=== PATIENT | male | born 1955 | race Caucasian/White ===

== ENCOUNTER 2022-11-14 12:22 | Emergency (ER) | payer OTHER ==
--- OUTSIDE RECORDS SUMMARY | 2022-11-14 12:26 | XMS REPORT | Continuity of Care Document ---
:1955 Author Organization [facility] t Address [address] [place] [address] Care Team Providers Name Role Phone Tl Sloan Attending Clinician Unavailable Payers Payer Name Policy Type Policy Number Effective Date Expiration Date S herminia [employer] MEDICARE C1 [id number] Common Spi rit PPO - [facility] Problems Condition Condition Condition Status Onset Resolution Last Treating Co mments Source Name Details Category Date Date Treatment Clinician Date [id number] KATINA Problem Active Common (obstructi Spirit ve sleep - [facility]I apnea) [facility] [id number] Gout, Problem Active Common unspecifie Spirit d cause, - [facility]I unspecifie [facility] chronicity Medica l , Center unspecifie d site [id number] CPAP Problem Active Common (continuou Spirit s positive - CHI airway St pressure) [facility] dependence [facility]ica [facility] [place] [id number] Noncomplia Problem Active Co mmon nce with Spirit dietary - [facility]I restrictio [facility] [id number] Mixed Problem Active Common hyperlipid Spirit emia - CHI [facility] [id number] HTN, goal Problem Active Comm on below Spirit 140/90 - [facility] [id number] Mild Problem Active Common intermitte Spirit nt asthma - [facility] with [facility] rhinitis Medical without Center complicati on [id number] Adult BMI Problem Active Com mon 35.0-35.9 Spirit kg/sq m [facility] Allergies, Adverse Reactions, Alerts This patient has no known allergies or adverse reactions. Social History Social Habit Start Date Stop Date Quantity Comments Source History of Tobacco Use Co mmon [facility] Sex Assigned At Com mon [facility] Smoking Status Start Date Stop Date Source Never Smoker [facility] Medications Ordered Filled Start Stop Current Ordering Indication Dosage Frequency Signature Comments Components Source Medication Medication Date Date Medication? Clinician (SIG) Name Name Nebulizer Nebulizer 2020-0 Yes Tl as C ommon 5-11 Sloan directed Spirit 00:00: for asthma, cough, [facility] wheeze [facility] Ipratropium Ipratropium 2020-0 Yes Tl 3 ml as Common -Albuterol -Albuterol 3-16 Sloan needed Spirit 00:00: [facility] Ipratropium Ipratropium 2020-0 No 3{ml_as Ipratropiu -Albuterol -Albuterol 3-16 _needed m-Albutero 0.5-2.5 (3) 0.5-2.5 (3) 00:00: } l 0.5-2.5 MG/3ML MG/3ML 00 (3) MG/3ML Ipratropium Ipratropium 2020-0 No 3{ml_as Ipratropiu -Albuterol -Albuterol 3-16 _needed m-Albutero 0.5-2.5 (3) 0.5-2.5 (3) 00:00: } l 0.5-2.5 MG/3ML MG/3ML 00 (3) MG/3ML Ipratropium Ipratropium 2020-0 No 3{ml_as Ipratropiu -Albuterol -Albuterol 3-16 _needed m-Albutero 0.5-2.5 (3) 0.5-2.5 (3) 00:00: } l 0.5-2.5 MG/3ML MG/3ML 00 (3) MG/3ML Ipratropium Ipratropium 2020-0 No 3{ml_as Ipratropiu -Albuterol -Albuterol 3-16 _needed m-Albutero 0.5-2.5 (3) 0.5-2.5 (3) 00:00: } l 0.5-2.5 MG/3ML MG/3ML 00 (3) MG/3ML Ipratropium Ipratropium 2020-0 No 3{ml_as Ipratropiu -Albuterol -Albuterol 3-16 _needed m-Albutero 0.5-2.5 (3) 0.5-2.5 (3) 00:00: } l 0.5-2.5 MG/3ML MG/3ML 00 (3) MG/3ML Ipratropium Ipratropium 2020-0 No 3{ml_as Ipratropiu -Albuterol -Albuterol 3-16 _needed m-Albutero 0.5-2.5 (3) 0.5-2.5 (3) 00:00: } l 0.5-2.5 MG/3ML MG/3ML 00 (3) MG/3ML Ipratropium Ipratropium 2020-0 No 3{ml_as Ipratropiu -Albuterol -Albuterol 3-16 _needed m-Albutero 0.5-2.5 (3) 0.5-2.5 (3) 00:00: } l 0.5-2.5 MG/3ML MG/3ML 00 (3) MG/3ML Ipratropium Ipratropium 2020-0 No 3{ml_as Ipratropiu -Albuterol -Albuterol 3-16 _needed m-Albutero 0.5-2.5 (3) 0.5-2.5 (3) 00:00: } l 0.5-2.5 MG/3ML MG/3ML 00 (3) MG/3ML Ipratropium Ipratropium 2020-0 No 3{ml_as Ipratropiu -Albuterol -Albuterol 3-16 _needed m-Albutero 0.5-2.5 (3) 0.5-2.5 (3) 00:00: } l 0.5-2.5 MG/3ML MG/3ML 00 (3) MG/3ML Simvastatin Simvastatin Yes Tl TAKE 1 Common Sloan TABLET Spirit EVERY - CHI EVENING [facility] Dulera Dulera Yes Tl 2 puffs Common Sloan Spirit - [facility] Allopurinol Allopurinol Yes Tl 2 tablet Common Sloan [facility] ProAir HFA ProAir HFA Yes Tl 2 puffs as Common Sloan needed [facility] Alyssa-D Alyssa-D Yes Tl not Com mon 24 Hour 24 Hour Sloan defined Spiri [facility] Simvastatin Simvastatin No Simvastati 20 MG 20 MG n 20 MG ProAir HFA ProAir HFA No 2{puffs QID ProAir HFA 108 (90 108 (90 _as_nee 108 (90 Base) Base) ded} Base) MCG/ACT MCG/ACT MCG/ACT Simvastatin Simvastatin No 1{table QD Simvastati 20 MG 20 MG t_in_th n 20 MG e_eveni ng} Allopurinol Allopurinol No Allopurino 100 MG 100 MG l 100 MG Alyssa-D Alyssa-D No Alyssa-D 24 Hour 24 Hour 24 Hour Nebulizer - Nebulizer - No Nebulizer - Allopurinol Allopurinol No 2{table QD Allopurino 100 MG 100 MG t} l 100 MG Dulera Dulera No Dulera 100-5 100-5 100-5 MCG/ACT MCG/ACT MCG/ACT Albuterol Albuterol No Albuterol Sulfate HFA Sulfate HFA Sulfate 108 (90 108 (90 HFA 108 Base) Base) (90 Base) MCG/ACT MCG/ACT MCG/ACT Dulera Dulera No 2{puffs BID Dulera 100-5 100-5 } 100-5 MCG/ACT MCG/ACT MCG/ACT Simvastatin Simvastatin No Simvastati 20 MG 20 MG n 20 MG ProAir HFA ProAir HFA No 2{puffs QID ProAir HFA 108 (90 108 (90 _as_nee 108 (90 Base) Base) ded} Base) MCG/ACT MCG/ACT MCG/ACT Simvastatin Simvastatin No 1{table QD Simvastati 20 MG 20 MG t_in_th n 20 MG e_eveni ng} Allopurinol Allopurinol No Allopurino 100 MG 100 MG l 100 MG Alyssa-D Alyssa-D No Alyssa-D 24 Hour 24 Hour 24 Hour Nebulizer - Nebulizer - No Nebulizer - Allopurinol Allopurinol No 2{table QD Allopurino 100 MG 100 MG t} l 100 MG Dulera Dulera No Dulera 100-5 100-5 100-5 MCG/ACT MCG/ACT MCG/ACT Albuterol Albuterol No Albuterol Sulfate HFA Sulfate HFA Sulfate 108 (90 108 (90 HFA 108 Base) Base) (90 Base) MCG/ACT MCG/ACT MCG/ACT Dulera Dulera No 2{puffs BID Dulera 100-5 100-5 } 100-5 MCG/ACT MCG/ACT MCG/ACT Simvastatin Simvastatin No Simvastati 20 MG 20 MG n 20 MG Dulera Dulera No 2{puffs BID Dulera 100-5 100-5 } 100-5 MCG/ACT MCG/ACT MCG/ACT ProAir HFA ProAir HFA No 2{puffs QID ProAir HFA 108 (90 108 (90 _as_nee 108 (90 Base) Base) ded} Base) MCG/ACT MCG/ACT MCG/ACT Allopurinol Allopurinol No 2{table QD Allopurino 100 MG 100 MG t} l 100 MG Allopurinol Allopurinol No QD Allopurino 100 MG 100 MG l 100 MG Nebulizer - Nebulizer - No Nebulizer - Simvastatin Simvastatin No 1{table QD Simvastati 20 MG 20 MG t_in_ n 20 MG e_eveni ng} Dulera Dulera No Dulera 100-5 100-5 100-5 MCG/ACT MCG/ACT MCG/ACT Albuterol Albuterol No Albuterol Sulfate HFA Sulfate HFA Sulfate 108 (90 108 (90 HFA 108 Base) Base) (90 Base) MCG/ACT MCG/ACT MCG/ACT Alyssa-D Alyssa-D No Alyssa-D 24 Hour 24 Hour 24 Hour Dulera Dulera No Dulera 100-5 100-5 100-5 MCG/ACT MCG/ACT MCG/ACT ProAir HFA ProAir HFA No 2{puffs QID ProAir HFA 108 (90 108 (90 _as_nee 108 (90 Base) Base) ded} Base) MCG/ACT MCG/ACT MCG/ACT Allopurinol Allopurinol No Allopurino 100 MG 100 MG l 100 MG Nebulizer - Nebulizer - No Nebulizer - Dulera Dulera No 2{puffs BID Dulera 100-5 100-5 } 100-5 MCG/ACT MCG/ACT MCG/ACT Albuterol Albuterol No Albuterol Sulfate HFA Sulfate HFA Sulfate 108 (90 108 (90 HFA 108 Base) Base) (90 Base) MCG/ACT MCG/ACT MCG/ACT Simvastatin Simvastatin No Simvastati 20 MG 20 MG n 20 MG Alyssa-D Alyssa-D No Alyssa-D 24 Hour 24 Hour 24 Hour Simvastatin Simvastatin No 1{table QD Simvastati 20 MG 20 MG t_in_th n 20 MG e_eveni ng} Allopurinol Allopurinol No Allopurino 100 MG 100 MG l 100 MG ProAir HFA ProAir HFA No 2{puffs QID ProAir HFA 108 (90 108 (90 _as_nee 108 (90 Base) Base) ded} Base) MCG/ACT MCG/ACT MCG/ACT Dulera Dulera No 2{puffs BID Dulera 100-5 100-5 } 100-5 MCG/ACT MCG/ACT MCG/ACT Allopurinol Allopurinol No 2{table QD Allopurino 100 MG 100 MG t} l 100 MG Nebulizer - Nebulizer - No Nebulizer - Simvastatin Simvastatin No Simvastati 20 MG 20 MG n 20 MG Alyssa-D Alyssa-D No Alyssa-D 24 Hour 24 Hour 24 Hour Simvastatin Simvastatin No 1{table QD Simvastati 20 MG 20 MG t_in_th n 20 MG e_eveni ng} Allopurinol Allopurinol No Allopurino 100 MG 100 MG l 100 MG ProAir HFA ProAir HFA No 2{puffs QID ProAir HFA 108 (90 108 (90 _as_nee 108 (90 Base) Base) ded} Base) MCG/ACT MCG/ACT MCG/ACT Dulera Dulera No 2{puffs BID Dulera 100-5 100-5 } 100-5 MCG/ACT MCG/ACT MCG/ACT Allopurinol Allopurinol No 2{table QD Allopurino 100 MG 100 MG t} l 100 MG Nebulizer - Nebulizer - No Nebulizer - Simvastatin Simvastatin No Simvastati 20 MG 20 MG n 20 MG Alyssa-D Alyssa-D No Alyssa-D 24 Hour 24 Hour 24 Hour Allopurinol Allopurinol No QD Allopurino 100 MG 100 MG l 100 MG Dulera Dulera No 2{puffs BID Dulera 100-5 100-5 } 100-5 MCG/ACT MCG/ACT MCG/ACT Alyssa-D Alyssa-D No Aylssa-D 24 Hour 24 Hour 24 Hour ProAir HFA ProAir HFA No 2{puffs QID ProAir HFA 108 (90 108 (90 _as_nee 108 (90 Base) Base) ded} Base) MCG/ACT MCG/ACT MCG/ACT Nebulizer - Nebulizer - No Nebulizer - Simvastatin Simvastatin No QD Simvastati 20 MG 20 MG n 20 MG Albuterol Albuterol No Albuterol Sulfate HFA Sulfate HFA Sulfate 108 (90 108 (90 HFA 108 Base) Base) (90 Base) MCG/ACT MCG/ACT MCG/ACT Simvastatin Simvastatin No Simvastati 20 MG 20 MG n 20 MG Dulera Dulera No Dulera 100-5 100-5 100-5 MCG/ACT MCG/ACT MCG/ACT Simvastatin Simvastatin No 1{table QD Simvastati 20 MG 20 MG t_in_th n 20 MG e_eveni ng} Nebulizer - Nebulizer - No Nebulizer - Alyssa-D Alyssa-D No Alyssa-D 24 Hour 24 Hour 24 Hour ProAir HFA ProAir HFA No 2{puffs QID ProAir HFA 108 (90 108 (90 _as_nee 108 (90 Base) Base) ded} Base) MCG/ACT MCG/ACT MCG/ACT Allopurinol Allopurinol No Allopurino 100 MG 100 MG l 100 MG Simvastatin Simvastatin No Simvastati 20 MG 20 MG n 20 MG ProAir HFA ProAir HFA No 2{puffs QID ProAir HFA 108 (90 108 (90 _as_nee 108 (90 Base) Base) ded} Base) MCG/ACT MCG/ACT MCG/ACT Simvastatin Simvastatin No 1{table QD Simvastati 20 MG 20 MG t_in_th n 20 MG e_eveni ng} Allopurinol Allopurinol No Allopurino 100 MG 100 MG l 100 MG Alyssa-D Alyssa-D No Alyssa-D 24 Hour 24 Hour 24 Hour Nebulizer - Nebulizer - No Nebulizer - Allopurinol Allopurinol No 2{table QD Allopurino 100 MG 100 MG t} l 100 MG Dulera Dulera No Dulera 100-5 100-5 100-5 MCG/ACT MCG/ACT MCG/ACT Albuterol Albuterol No Albuterol Sulfate HFA Sulfate HFA Sulfate 108 (90 108 (90 HFA 108 Base) Base) (90 Base) MCG/ACT MCG/ACT MCG/ACT Dulera Dulera No 2{puffs BID Dulera 100-5 100-5 } 100-5 MCG/ACT MCG/ACT MCG/ACT Allopurinol Allopurinol No 2{table QD Allopurino 100 MG 100 MG 12- t} l 100 MG 00:00 :00 Dulera Dulera No 2{puffs BID Dulera 100-5 100-5 11-30 } 100-5 MCG/ACT MCG/ACT 00:00 MCG/ACT :00 Immunizations Ordered Immunization Filled Immunization Date Status Commen ts Source Name Name Prevnar 13 (PCV13) Prevnar 13 (PCV13) 2021-11-13 Completed [facility] 15:41:00 - [facility] Prevnar 13 (PCV13) Prevnar 13 (PCV13) 2021-11-13 Completed [facility] 15:41:00 [facility] Prevnar 13 (PCV13) Prevnar 13 (PCV13) 2021-11-13 Completed [facility] 15:41:00 [facility] Prevnar 13 (PCV13) Prevnar 13 (PCV13) 2021-11-13 Completed [facility] 15:41:00 - [facility] Prevnar 13 (PCV13) Prevnar 13 (PCV13) 2021-11-13 Completed [facility] 15:41:00 [facility] Prevnar 13 (PCV13) Prevnar 13 (PCV13) 2021-11-13 Completed [facility] 15:41:00 [facility] Prevnar 13 (PCV13) Prevnar 13 (PCV13) 2021-11-13 Completed [facility] 15:41:00 [facility] Prevnar 13 (PCV13) Prevnar 13 (PCV13) 2021-11-13 Completed [facility] 15:41:00 - [facility] Afluria single dose Afluria single dose 2020-05-11 Completed [facility] 10:16:00 - [facility] Afluria single dose Afluria single dose 2020-05-11 Completed Common [facility] 10:16:00 - [facility] Afluria single dose Afluria single dose 2020-05-11 Completed [facility] 10:16:00 - [facility] Afluria single dose Afluria single dose 2020-05-11 Completed [facility] 10:16:00 - [facility] Afluria single dose Afluria single dose 2020-05-11 Completed Common [facility] 10:16:00 - [facility] Afluria single dose Afluria single dose 2020-05-11 Completed Common [facility] 10:16:00 - [facility] Afluria single dose Afluria single dose 2020-05-11 Completed Common [facility] 10:16:00 - [facility] Afluria single dose Afluria single dose 2020-05-11 Completed [facility] 10:16:00 - [facility] Afluria single dose Afluria single dose 2020-05-11 Completed Common [facility] 10:16:00 - [facility] Vital Signs Vital Name Observation Time Observation Value Comments Source height 2022-05-22 14:10:00 67 [in_i] [facility] weight 2022-05-22 14:10:00 243 [lb_av] [facility] temperature 2022-05-22 14:10:00 96.9 [degF] [facility] bmi 2022-05-22 14:10:00 38.06 kg/m2 [facility] oximetry 2022-05-22 14:10:00 96 % [facility] respiratory rate 2022-05-22 14:10:00 16 /min Comm on [facility] blood pressure 2022-05-22 14:10:00 134 mm[Hg] Common [facility] - systolic [facility] blood pressure 2022-05-22 14:10:00 76 mm[Hg] [facility] - diastolic [facility] height 2021-11-30 11:30:00 69 [in_i] [facility] weight 2021-11-30 11:30:00 249.6 [lb_av] Common [facility] temperature 2021-11-30 11:30:00 98.8 [degF] Common [facility] bmi 2021-11-30 11:30:00 36.86 kg/m2 Common [facility] oximetry 2021-11-30 11:30:00 95 % Common [facility] respiratory rate 2021-11-30 11:30:00 16 /min Comm on [facility] blood pressure 2021-11-30 11:30:00 132 mm[Hg] Common [facility] - systolic [facility] blood pressure 2021-11-30 11:30:00 66 mm[Hg] [facility] - diastolic [facility] height 2021-11-13 15:00:00 69 [in_i] [facility] weight 2021-11-13 15:00:00 249.3 [lb_av] [facility] temperature 2021-11-13 15:00:00 98.0 [degF] Common [facility] bmi 2021-11-13 15:00:00 36.81 kg/m2 [facility] oximetry 2021-11-13 15:00:00 95 % [facility] respiratory rate 2021-11-13 15:00:00 16 /min Comm on [facility] blood pressure 2021-11-13 15:00:00 134 mm[Hg] Common [facility] systolic [facility] blood pressure 2021-11-13 15:00:00 67 mm[Hg] Common [facility] diastolic [facility] Procedures This patient has no known procedures. Encounters Start End Encounter Admission Attending Care Care Encounter Source Date/Time Date/Time Type Type Clinicians Facility Department ID 2021-11-13 Outpatient Sloan, ABAD STLC [id number] Common 14:56:00 [facility] 2021-11-09 Outpatient Sloan, STLMLC STLMLC [id number] Common 15:38:00 Tl [facility] 2021-10-31 Outpatient Sloan, STLMLC STLMLC [id number] Common 13:31:59 Tl [id number] [facility] 2021-10-31 Outpatient Sloan, STLMLC STLMLC [id number] Common 12:49:31 Tl [id number] [facility] 2021-10-31 Outpatient Sloan, STLMLC STLMLC [id number] Common 12:31:58 Tl [id number] [facility] 2021-10-31 Outpatient Sloan, STLMLC STLMLC [id number] Common 12:26:10 Tl [id number] [facility] 2021-10-31 Outpatient Sloan, STLMLC STLMLC [id number] Common 11:54:31 Tl [id number] [facility] 2021-10-31 Outpatient Sloan, STLMLC STLMLC [id number] Common 11:17:27 Tl [id number] [facility] 2021-10-31 Outpatient Sloan, STLMLC STLMLC [id number] Common 11:09:13 Tl [id number] [facility] 2022-06-14 2022-06-14 (WEB) STLMLC STLMLC [id number] Co mmon 00:00:00 00:00:00 [facility] 2022-05-22 2022-05-22 OFFICE STLMLC STLMLC [id number] Co mmon 00:00:00 00:00:00 VISIT [facility] LEVEL 4 [facility] 2022-05-22 2022-05-22 (TEL) STLMLC STLMLC [id number] Co mmon 00:00:00 00:00:00 [facility] 2022-03-05 2022-03-05 (TEL) STLMLC STLMLC [id number] Co mmon 00:00:00 00:00:00 [facility] 2021-12-24 2021-12-24 (TEL) STLMLC STLMLC [id number] Co mmon 00:00:00 00:00:00 [facility] 2021-12-07 2021-12-07 (TEL) STLMLC STLMLC [id number] Co mmon 00:00:00 00:00:00 [facility] 2021-11-30 2021-11-30 OFFICE STLMLC STLMLC [id number] Co mmon 00:00:00 00:00:00 VISIT EST Spir it PT LEVEL 3 [facility] 2021-11-13 2021-11-13 WELCOME TO STLMLC STLMLC [id number] Common 00:00:00 00:00:00 MEDICARE Spiri t PREV PHY - [facility] EXAM [facility] 2021-07-05 2021-07-05 (TEL) STLMLC STLMLC [id number] Co mmon 00:00:00 00:00:00 [facility] 2021-06-06 2021-06-06 Outpatient STLMLC STLMLC [id number] Common 00:00:00 00:00:00 [facility] 2021-05-18 2021-05-18 Outpatient STLMLC STLMLC [id number] Common 00:00:00 00:00:00 [facility] 2021-05-10 2021-05-10 Outpatient STLMLC STLMLC [id number] Common 00:00:00 00:00:00 [facility] 2021-03-08 2021-03-08 Outpatient STLMLC STLMLC [id number] Common 00:00:00 00:00:00 [facility] 2021-03-07 2021-03-07 Outpatient STLMLC STLMLC [id number] Common 00:00:00 00:00:00 [facility] 2021-02-22 2021-02-22 Outpatient STLMLC STLMLC [id number] Common 00:00:00 00:00:00 [facility] 2020-11-29 2020-11-29 Outpatient STLMLC STLMLC [id number] Common 00:00:00 00:00:00 [facility] 2020-11-03 2020-11-03 Outpatient STLMLC STLMLC [id number] Common 00:00:00 00:00:00 [facility] 2020-11-02 2020-11-02 Outpatient STLMLC STLMLC [id number] Common 00:00:00 00:00:00 [facility] 2020-07-25 2020-07-25 Outpatient STLMLC STLMLC [id number] Common 00:00:00 00:00:00 [facility] 2020-04-24 2020-04-24 [id number] Common 10:15:00 10:15:[place] [address] [facility] 2020-02-14 2020-02-14 [facility] [id number] Common 14:38:00 14:38:00 [place] [address] [place] [address] [facility] 2020-01-25 2020-01-25 [facility] [id number] Common 08:32:00 08:32:00 [place] [address] [place] [address] Drive [facility] 2020-01-24 2020-01-24 [facility] [id number] Common 11:44:00 11:44:00 [place] [address] [place] [address] [facility] 2019-12-20 2019-12-20 [facility] [id number] Common 11:39:00 11:39:00 [place] [address] [place] [address] [facility] 2019-11-30 2019-11-30 [id number] Common 08:17:00 08:17:00 [place] [address] [place] [address] [facility] 2019-11-29 2019-11-29 [facility] [id number] Common 10:15:00 10:15:00 [place] [address] [address] [facility] 2019-09-14 2019-09-14 [facility] [id number] Common 09:45:00 09:45:00 [place] [address] [address] [facility] 2019-07-26 2019-07-26 [facility] [id number] Common 10:45:00 10:45:00 [place] [address] [place] [address] [facility] 2018-11-23 2018-11-23 [facility] [id number] Common 14:00:00 14:00:00 [place] [address] [place] [address] [facility] 2018-10-19 2018-10-19 [facility] [id number] Common 11:30:00 11:30:00 [place] [address] [place] [address] [facility] 2018-09-22 2018-09-22 [facility] [id number] Common 10:15:00 10:15:00 [place] [address] [place] [address] [facility] 2018-07-14 2018-07-14 [facility] [id number] Common 08:45:00 08:45:00 [place] [address] [place] [address] [facility] 2018-03-18 2018-03-18 [facility] [id number] Common 10:15:00 10:15:00 [place] [address] [address] [facility] Results This patient has no known results.
[2022-11-14 12:47] LABS: Urine Blood Negative (Negative); Urine Glucose Negative (Negative); Urine Protein Negative (Negative); Urine Specific Gravity 1.015 (1.005-1.030); Urine pH 6.5 (5.0-7.0)
[2022-11-14 12:56] LABS: Absolute Lymphocytes (CBC) 2.3 K/uL (0.7-4.9); Hematocrit 45.1 % (39.6-49.0); Lymphocytes % 18.9 % (15.3-44.8); MCV 97.7 fL (80-100); MPV 7.1 fL (7.6-11.3); RBC Red Blood Cell Count 4.61 M/uL (4.33-5.43)
[2022-11-14] MEDS ORDERED: ONDANSETRON 4 MG/2 ML VIAL ONE (12:59)
[2022-11-14] MEDS ORDERED: MORPHINE 4 MG/ML SYR ONE (12:59)
[2022-11-14] MEDS ORDERED: NA CHLORIDE 0.9% 1,000 ML ONE (12:59)
[2022-11-14 13:02] LABS: Urine Bacteria None Seen /HPF (<20); Urine Mucus Slight /HPF (None Seen); Urine RBC <5 /HPF (None Seen)
--- NOTE | 2022-11-14 13:06 | RAD REPORT ---
EXAM DESCRIPTION: CT - Stone Protocol - 11/14/2022 12:57 pm CLINICAL HISTORY: Flank pain. FLANK PAIN COMPARISON: RP EXAM COMPLETE dated 09/24/2012 TECHNIQUE: Axial images were obtained without oral or IV contrast. Lack of contrast limits solid org an and vascular assessment. The [id number] spans the entirety of the system partially obscuring uppermost abdomen and lung bases. Coronal reformatted images were obtained and reviewed. All CT scans are performed using dose optimization technique as appropriate and may include automated exposure control or mA/KV adjustment according to patient size. FINDINGS: The lower lung camacho are clear. Imaged portions of the liver and spleen show no suspicious findings on non-contrast imaging. The panc reas and adrenal glands are normal. No pathologic lymphadenopathy in the abdomen or pelvis. Punctate 4 mm stone right kidney inferiorly without hydronephrosis. No bowel obstruction, free air, free fluid or abscess. Normal appendix noted.Sigmoid diverticulosis c shon without diverticulitis. Small fat containing inguinal hernia, greater on the left. Mild lumbar degenerative changes. IMPRESSION: 4 mm right renal stone without hydronephrosis. Sigmoid diverticulosis coli without diverticulitis.
[2022-11-14 13:14] LABS: Bilirubin Total 0.9 mg/dL (0.2-1.0); Potassium 4.4 mmol/L (3.5-5.1); Protein, Total 7.7 g/dL (6.4-8.2)
--- NOTE | 2022-11-14 15:23 | ER ---
Nurse's Notes [facility] Name: Naman De Dios Age: 67 yrs Sex: Male : 1955 Arrival Date: 11/14/2022 Time: 12:25 Bed 13 Private MD: Diagnosis: Low back pain Presentation: 11/14 12:31 Chief complaint: Patient states: has a really back lower back ache, feels like a kidney iw stone, reports pain on left side, now the right side is hurting, started on Friday , no urinary s/s. Coronavirus screen: At this time, the client does not indicate any symptoms associated with coronavirus-19. Ebola Screen: Patient negative for fever greater than or equal to 101.5 degrees Fahrenheit, and additional compatible Ebola Virus Disease symptoms Patient denies exposure to infectious person. Patient denies travel to an Ebola-affected area in the 21 days before illness onset. No symptoms or risks identified at this time. Initial Sepsis Screen: Does the patient meet any 2 criteria? No. Patient's initial sepsis screen is negative. Does the patient have a suspected source of infection? No. Patient's initial sepsis screen is negative. Risk Assessment: Do you want to hurt yourself or someone else? Patient reports no desire to harm self or others. Onset of symptoms was November 10, 2022. 12:31 Method Of Arrival: Ambulatory iw 12:31 Acuity: ABBY 3 iw Triage Assessment: 12:35 General: Appears distressed, uncomfortable, Behavior is calm, cooperative, appropriate bp for age. Pain: Complains of pain in left low back. EENT: No deficits noted. Neuro: No deficits noted. Cardiovascular: No deficits noted. Respiratory: No deficits noted. GI: Reports nausea. : Reports pain in left flank(s). Derm: No deficits noted. Musculoskeletal: No deficits noted. Historical: - Allergies: 12:33 No Known Allergies; iw - Home Meds: 12:33 Dulera 100-5 mcg/actuation inhalation HFAA 2 puffs 2 times per day [Active]; iw Allopurinol 200 mg Oral once daily [Active]; simvastatin 20 mg Oral tab 1 tab once daily [Active]; - PMHx: 12:33 Asthma; Hypertensive disorder; Hypercholesterolemia; iw - PSHx: 12:33 None; iw - Immunization history:: Client reports receiving the 2nd dose of the Covid vaccine. - Social history:: Smoking status: Patient denies any tobacco usage or history of. Screenin:30 [facility] ED Fall Risk Assessment (Adult) History of falling in the last 3 months, bp including since admission No falls in past 3 months (0 pts). Abuse screen: Denies threats or abuse. Denies injuries from another. Nutritional screening: No deficits noted. Tuberculosis screening: No symptoms or risk factors identified. Assessment: 12:35 General: SEE TRIAGE NOTE. bp 14:30 Reassessment: No changes from previously documented assessment. Patient and/or family bp updated on plan of care and expected duration. Pain level reassessed. 15:38 Reassessment: PT DC HOME AMBULATORY WITH FAMILY. bp Vital Signs: 12:31 BP 162 / 86; Pulse 83; Resp 16; Temp 98.1; Pulse Ox 93% on R/A; Weight 112.04 kg; iw Height 5 ft. 9 in. (175.26 cm); Pain 9/10; 14:30 BP 129 / 67; Pulse 76; Resp 16; Pulse Ox 94% ; bp 15:38 BP 132 / 81; Pulse 82; Resp 16; Pulse Ox 98% ; bp 12:31 Body Mass Index 36.48 (112.04 kg, 175.26 cm) iw ED Course: 12:25 Patient arrived in ED. as 12:33 Triage completed. iw 12:34 Arm band placed on. iw 12:37 Justin Nj, SHAYY is Primary Nurse. bp 12:37 Bob Delgado NP is PHCP. pm1 12:37 Joseph Frederick MD is Attending Physician. pm1 12:58 CT Stone Protocol In Process Unspecified. EDMS 13:00 Inserted saline lock: 20 gauge in right antecubital area, using aseptic technique. bp 14:30 Patient has correct armband on for positive identification. Bed in low position. Call bp light in reach. Side rails up X2. Adult w/ patient. 15:38 No provider procedures requiring assistance completed. IV discontinued, intact, bp bleeding controlled, No redness/swelling at site. Pressure dressing applied. Administered Medications: 13:05 Drug: Zofran (Ondansetron) 4 mg Route: IVP; Site: right antecubital; bp 13:08 Follow up: Response: No adverse reaction bp 13:05 Drug: morphine 4 mg Route: IVP; Infused Over: 4 mins; Site: right antecubital; bp 13:08 Follow up: Response: No adverse reaction bp 13:05 Drug: NS 0.9% 1000 ml Route: IV; Rate: 1000 ml; Site: right antecubital; bp 15:40 Follow up: IV Status: Completed infusion; IV Intake: 1000ml bp Medication: 14:30 VIS not applicable for this client. bp Intake: 15:40 IV: 1000ml; Total: 1000ml. bp Outcome: 15:22 Discharge ordered by MD. pm1 15:38 Discharged to home ambulatory, with family. bp 15:38 Condition: stable 15:38 Discharge instructions given to patient, Instructed on discharge instructions, follow up and referral plans. medication usage, Demonstrated understanding of instructions, follow-up care, medications, Prescriptions given X 1. 15:40 Patient left the ED. bp Signatures: Dispatcher [employer] EDNasrin Astudillo Irene, RN RN iw Marinas, Patrick, NP CRANE OPERATOR pm1 Justin Nj RN RN bp
--- NOTE | 2022-11-14 15:23 | EDPHYS ---
Physician Documentation [facility] Name: Naman De Dios Age: 67 yrs Sex: Male : 1955 Arrival Date: 11/14/2022 Time: 12:25 Bed 13 Private MD: ED Physician Joseph Frederick HPI: 11/14 12:45 This 67 yrs old Male presents to ER via Ambulatory with complaints of Possible Kidney pm1 Stone. 12:45 The patient complains of pain in the left low back. The pain does not radiate. Onset: pm1 The symptoms/episode began/occurred 5 day(s) ago. Modifying factors: The symptoms are alleviated by nothing. the symptoms are aggravated by nothing. Associated signs and symptoms: Pertinent negatives: dysuria, fever, nausea, vomiting. Severity of pain: in the emergency department the pain is unchanged is a 8 / 10. The patient has experienced a previous episode, similar to prior kidney stone in the past greater than 10 years ago. The patient has not recently seen a physician. Historical: - Allergies: 12:33 No Known Allergies; iw - Home Meds: 12:33 Dulera 100-5 mcg/actuation inhalation HFAA 2 puffs 2 times per day [Active]; iw Allopurinol 200 mg Oral once daily [Active]; simvastatin 20 mg Oral tab 1 tab once daily [Active]; - PMHx: 12:33 Asthma; Hypertensive disorder; Hypercholesterolemia; iw - PSHx: 12:33 None; iw - Immunization history:: Client reports receiving the 2nd dose of the Covid vaccine. - Social history:: Smoking status: Patient denies any tobacco usage or history of. ROS: 12:45 Constitutional: Negative for fever, chills, and weight loss, Cardiovascular: Negative pm1 for chest pain, palpitations, and edema, Respiratory: Negative for shortness of breath, cough, wheezing, and pleuritic chest pain. 12:45 Abdomen/GI: Negative for abdominal pain, nausea, vomiting, diarrhea, and constipation. 12:45 MS/Extremity: Negative for injury and deformity, Skin: Negative for injury, rash, and discoloration. 12:45 Back: Positive for flank pain, on the left. 12:45 All other systems are negative. Exam: 12:45 Constitutional: This is a well developed, well nourished patient who is awake, alert, pm1 and in no acute distress. Head/Face: Normocephalic, atraumatic. 12:45 Skin: Warm, dry with normal turgor. Normal color with no rashes, no lesions, and no evidence of cellulitis. MS/ Extremity: Pulses equal, no cyanosis. Neurovascular intact. Full, normal range of motion. 12:45 Cardiovascular: Exam negative for acute changes, Rate: normal, Rhythm: regular, Pulses: no pulse deficits are appreciated. 12:45 Respiratory: Exam negative for acute changes, respiratory distress, shortness of breath. 12:45 Abdomen/GI: Inspection: obese Palpation: abdomen is soft and non-tender, in all quadrants. 12:45 Back: pain, is absent, vertebral tenderness, is not appreciated. 12:45 Neuro: Exam negative for acute changes, Orientation: is normal, Mentation: is normal, Motor: is normal, moves all fours. Vital Signs: 12:31 BP 162 / 86; Pulse 83; Resp 16; Temp 98.1; Pulse Ox 93% on R/A; Weight 112.04 kg; iw Height 5 ft. 9 in. (175.26 cm); Pain 9/10; 14:30 BP 129 / 67; Pulse 76; Resp 16; Pulse Ox 94% ; bp 15:38 BP 132 / 81; Pulse 82; Resp 16; Pulse Ox 98% ; bp 12:31 Body Mass Index 36.48 (112.04 kg, 175.26 cm) iw MDM: 12:37 Patient medically screened. pm1 15:20 Differential diagnosis: nephrolithiasis, UTI, appendicitis, arthritis, muscle pm1 spasm/strain. 15:21 Data reviewed: vital signs. pm1 15:21 Counseling: I had a detailed discussion with the patient and/or guardian regarding: the pm1 historical points, exam findings, and any diagnostic results supporting the discharge/admit diagnosis, lab results, radiology results, the need for outpatient follow up, to return to the emergency department if symptoms worsen or persist or if there are any questions or concerns that arise at home. 11/14 12:45 Order name: CBC with Diff; Complete Time: 12:58 pm1 11/14 12:45 Order name: CMP; Complete Time: 13:48 pm1 11/14 12:45 Order name: Lipase; Complete Time: 13:48 pm1 11/14 12:45 Order name: Urine Microscopic Only; Complete Time: 13:08 pm1 11/14 12:45 Order name: CT Stone Protocol; Complete Time: 13:08 pm1 11/14 12:47 Order name: Urine Dipstick-Ancillary; Complete Time: 12:58 EDMS 11/14 12:45 Order name: IV Saline Lock; Complete Time: 13:06 pm1 11/14 12:45 Order name: Labs collected and sent; Complete Time: 13:06 pm1 11/14 12:45 Order name: Urine Dipstick-Ancillary (obtain specimen); Complete Time: 12:51 pm1 Administered Medications: 13:05 Drug: Zofran (Ondansetron) 4 mg Route: IVP; Site: right antecubital; bp 13:08 Follow up: Response: No adverse reaction bp 13:05 Drug: morphine 4 mg Route: IVP; Infused Over: 4 mins; Site: right antecubital; bp 13:08 Follow up: Response: No adverse reaction bp 13:05 Drug: NS 0.9% 1000 ml Route: IV; Rate: 1000 ml; Site: right antecubital; bp 15:40 Follow up: IV Status: Completed infusion; IV Intake: 1000ml bp Disposition: 17:49 Co-signature as Attending Physician, Joseph Frederick MD I reviewed the patient's care rt provided by the Advanced Practice Provider and agree with the diagnosis and treatment plan. Disposition Summary: 11/14/22 15:22 Discharge Ordered Location: Home pm1 Problem: new pm1 Symptoms: have improved pm1 Condition: Stable pm1 Diagnosis - Low back pain pm1 Followup: pm1 - With: Emergency Department - When: As needed - Reason: Worsening of condition Followup: pm1 - With: Private Physician - When: 2 - 3 days - Reason: Recheck today's complaints, Continuance of care, Re-evaluation by your physician Discharge Instructions: - Discharge Summary Sheet pm1 - Acute Back Pain, Adult pm1 - Flank Pain, Adult pm1 Forms: - Medication Reconciliation Form pm1 - Thank You Letter pm1 - Antibiotic Education pm1 - Prescription Opioid Use pm1 Prescriptions: - Tylenol-Codeine #3 300 mg-30 mg Oral - take 2 tablet by ORAL route every 6 hours As needed; 20 tablet; Refills: 0, pm1 Product Selection Permitted Signatures: Dispatcher [employer] Irma Tay, RN RN iw Bob Delgado, PEOPLE GREETER PEOPLE GREETER pm1 Justin Nj RN RN bp Joseph Frederick MD MD rt
[2022-11-14 15:54] VITALS: TEMP 98.1
[2022-11-14 16:04] VITALS: BP 132/81; O2SAT 98
== END 2022-11-14 15:40 | disposition home or self-care (01) ==
LOC: ER 12:22
DX: M54.50 Low back pain, unspecified (principal); I10 Essential (primary) hypertension
CPT/HCPCS: 96361; 85025; 36415; 83690; 80053; 76377; 74176; 96375; 96374; 99284; J7030; J2405; 81003; 81015

== ENCOUNTER 2024-03-09 07:37 | Emergency (ER) | payer OTHER ==
--- OUTSIDE RECORDS SUMMARY | 2024-03-09 07:42 | XMS REPORT | Continuity of Care Document ---
Author Name Unknown Address [address] [facility]. 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 Role Phone JOHN SLOAN Primary Care Physician Unavailab John Patino Attending Clinician Unavailable AJ CAO Attending Clinician Unavailable Aj Cao MD Attending Clinician [phone] Doctor Unassigned, [place] Attending Clinician U navailable Pob, [facility] Main Attending Clinician UnavailKatty Francisco Attending Clinician KATTY IGLESIAS Attending Clinician Unavaila AJ Tee Admitting Clinician Unavailable Payers Payer Name Policy Type Policy Number Effective Date Expirati on Date Source AET[employer] MANAGED MEDICARE PPO-MIMI [id number] 2022 00:00:00 AETNA MEDICARE PPO C1 [id number] [facility] Problems Condition Name Condition Details Condition Category Status Onset Date Resolution Date Last Treatment Date Treating Clinician Comments Source [id number] Morbid (severe) obesity due to excess calories Problem [facility] [id number] Kidney stones Problem [facility] [id number] KATINA (obstructi ve sleep apnea) Problem [facility] [id number] Gout, unspecifie d cause, unspecifie d chronicity , unspecifie d site Problem [facility] [id number] CPAP (continuou s positive airway pressure) dependence Problem [facility] [id number] Noncomplia nce with dietary restrictio n Problem [facility] [id number] Mixed hyperlipid emia Problem [facility] [id number] HTN, goal below 140/90 Problem [facility] [id number] 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 complicati on Problem [facility] [id number] Body mass index [BMI] 38.0-38.9, adult Problem [facility] Allergies, Adverse Reactions, Alerts Allergy Name Allergy Type Status Severity Reaction(s) Onset Date Inactive Date Treating Clinician Comments Source NO KNOWN ALLERGIE S Drug Class Active [facility] Social History Social Habit Start Date Stop Date Quantity Comments Source Gender identity [facility] Sexual orientation U [facility] History of Tobacco Use [facility] History of Social function 2023-08-20 00:00:00 2023-08-20 00:00:00 [facility] Exposure to SARS-CoV-2 (event) 2023-01-11 00:00:00 2023-01-21 12:27:00 Not sure [facility] Sex assigned at 1955 00:00:00 1955 00:00:00 [facility] Smoking Status Start Date Stop Date Source Never Smoker [facility] Tobacco smoking consumption unknown [facility] Medications Ordered Medication Name Filled Medication Name Start Date Stop Date Current Medication? Ordering Clinician Indication Dosage Frequency Signature (SIG) Comments Components Source clotrimazol e-betametha sone cream 12-21 00:00: 00 01-21 04:59 :00 Yes [id number] Apply to affected area(s) 2 (two) times daily for 30 days. [facility] CPAP supplies as directed CPAP supplies as directed 2022-10 00:00: 00 No CPAP supplies as directed CPAP supplies as directed CPAP supplies as directed 2022-10 00:00: 00 No CPAP supplies as directed CPAP supplies as directed CPAP supplies as directed 2022-10 00:00: 00 No CPAP supplies as directed CPAP supplies as directed CPAP supplies as directed 2022-10 00:00: 00 No CPAP supplies as directed losartan potassium (LOSARTAN ORAL) 2022-10 10:42: 50 Yes Take by mouth. [facility] mometasone/ formoterol (DULERA INHALE) 2022-10 10:42: 50 Yes Inhale. [facility] CLOTRIMAZOL E-BETAMETHA SONE cream 2022-10 0-05 00:00: 00 12-21 00:00 :00 No [id number] APPLY TO AFFECTED AREA TWICE A DAY [facility] CLOTRIMAZOL E-BETAMETHA SONE cream 7-16 00:00: 00 07-10 00:00 :00 No [id number] APPLY TO AFFECTED AREA TWICE A DAY [facility] clotrimazol e-betametha sone cream 18 00:00: 00 Yes [id number] Apply to area(s) 2 (two) times daily. [facility] Nebulizer Nebulizer 5-11 00:00: 00 Yes John Sloan as directed for asthma, cough, wheeze [facility] Ipratropium -Albuterol Ipratropium -Albuterol 3-16 00:00: 00 Yes John Sloan 3 ml as needed [facility] Ipratropium -Albuterol 0.5-2.5 (3) MG/3ML Ipratropium -Albuterol 0.5-2.5 (3) MG/3ML 3-16 00:00: 00 No 3{ml_as _needed } Ipratropiu m-Albutero l 0.5-2.5 (3) MG/3ML Ipratropium -Albuterol 0.5-2.5 (3) MG/3ML Ipratropium -Albuterol 0.5-2.5 (3) MG/3ML 2020-0 3-16 00:00: 00 No 3{ml_as _needed } Ipratropiu m-Albutero l 0.5-2.5 (3) MG/3ML Ipratropium -Albuterol 0.5-2.5 (3) MG/3ML Ipratropium -Albuterol 0.5-2.5 (3) MG/3ML 2020-0 3-16 00:00: 00 No 3{ml_as _needed } Ipratropiu m-Albutero l 0.5-2.5 (3) MG/3ML Ipratropium -Albuterol 0.5-2.5 (3) MG/3ML Ipratropium -Albuterol 0.5-2.5 (3) MG/3ML 2020-0 3-16 00:00: 00 No 3{ml_as _needed } Ipratropiu m-Albutero l 0.5-2.5 (3) MG/3ML Ipratropium -Albuterol 0.5-2.5 (3) MG/3ML Ipratropium -Albuterol 0.5-2.5 (3) MG/3ML 2020-0 3-16 00:00: 00 No 3{ml_as _needed } Ipratropiu m-Albutero l 0.5-2.5 (3) MG/3ML Ipratropium -Albuterol 0.5-2.5 (3) MG/3ML Ipratropium -Albuterol 0.5-2.5 (3) MG/3ML 2020-0 3-16 00:00: 00 No 3{ml_as _needed } Ipratropiu m-Albutero l 0.5-2.5 (3) MG/3ML Simvastatin Simvastatin Yes John Sloan TAKE 1 TABLET EVERY EVENING [facility] Dulera Dulera Yes John Sloan 2 puffs [facility] Allopurinol Allopurinol Yes John Sloan 2 tablet [facility] ProAir HFA ProAir HFA Yes John Sloan 2 puffs as needed [facility] Alyssa-D 24 Hour Alyssa-D 24 Hour Yes John Sloan not defined [facility] Simvastatin 20 MG Simvastatin 20 MG No Simvastati n 20 MG ProAir HFA 108 (90 Base) MCG/ACT ProAir HFA 108 (90 Base) MCG/ACT No 2{puffs _as_nee ded} QID ProAir HFA 108 (90 Base) MCG/ACT Allopurinol 100 MG Allopurinol 100 MG No Allopurino l 100 MG Alyssa-D 24 Hour Alyssa-D 24 Hour No Alyssa-D 24 Hour Nebulizer - Nebulizer - No Ne bulizer - Dulera 100-5 MCG/ACT Dulera 100-5 MCG/ACT No Dulera 100-5 MCG/ACT Albuterol Sulfate HFA 108 (90 Base) MCG/ACT Albuterol Sulfate HFA 108 (90 Base) MCG/ACT No Albuterol Sulfate HFA 108 (90 Base) MCG/ACT Dulera 100-5 MCG/ACT Dulera 100-5 MCG/ACT No 2{puffs } BID Dulera 100-5 MCG/ACT Albuterol Sulfate HFA 108 (90 Base) MCG/ACT Albuterol Sulfate HFA 108 (90 Base) MCG/ACT No Albuterol Sulfate HFA 108 (90 Base) MCG/ACT Simvastatin 20 MG Simvastatin 20 MG No Simvastati n 20 MG Alyssa-D 24 Hour Alyssa-D 24 Hour No Alyssa-D 24 Hour Simvastatin 20 MG Simvastatin 20 MG No 1{table t_in_th e_eveni ng} QD Simvastati n 20 MG Allopurinol 100 MG Allopurinol 100 MG No Allopurino l 100 MG ProAir HFA 108 (90 Base) MCG/ACT ProAir HFA 108 (90 Base) MCG/ACT No 2{puffs _as_nee ded} QID ProAir HFA 108 (90 Base) MCG/ACT Nebulizer - Nebulizer - No Ne bulizer - Losartan Potassium 50 MG Losartan Potassium 50 MG No Losartan Potassium 50 MG Dulera 100-5 MCG/ACT Dulera 100-5 MCG/ACT No 2{puffs } BID Dulera 100-5 MCG/ACT Nebulizer - Nebulizer - No Ne bulizer - Simvastatin 20 MG Simvastatin 20 MG No Simvastati n 20 MG ProAir HFA 108 (90 Base) MCG/ACT ProAir HFA 108 (90 Base) MCG/ACT No 2{puffs _as_nee ded} QID ProAir HFA 108 (90 Base) MCG/ACT Allopurinol 100 MG Allopurinol 100 MG No Allopurino l 100 MG Alyssa-D 24 Hour Alyssa-D 24 Hour No Alyssa-D 24 Hour Simvastatin 20 MG Simvastatin 20 MG No Simvastati n 20 MG Losartan Potassium 50 MG Losartan Potassium 50 MG No Losartan Potassium 50 MG Dulera 100-5 MCG/ACT Dulera 100-5 MCG/ACT No 2{puffs } BID Dulera 100-5 MCG/ACT Allopurinol 100 MG Allopurinol 100 MG No Allopurino l 100 MG Alyssa-D 24 Hour Alyssa-D 24 Hour No Alyssa-D 24 Hour Simvastatin 20 MG Simvastatin 20 MG No Simvastati n 20 MG Losartan Potassium 50 MG Losartan Potassium 50 MG No Losartan Potassium 50 MG Dulera 100-5 MCG/ACT Dulera 100-5 MCG/ACT No 2{puffs } BID Dulera 100-5 MCG/ACT Allopurinol 100 MG Allopurinol 100 MG No Allopurino l 100 MG Alyssa-D 24 Hour Alyssa-D 24 Hour No Alyssa-D 24 Hour Simvastatin 20 MG Simvastatin 20 MG No Simvastati n 20 MG Losartan Potassium 50 MG Losartan Potassium 50 MG No Losartan Potassium 50 MG Nebulizer - Nebulizer - No Ne bulizer - Dulera 100-5 MCG/ACT Dulera 100-5 MCG/ACT No 2{puffs } BID Dulera 100-5 MCG/ACT Allopurinol 100 MG Allopurinol 100 MG No Allopurino l 100 MG Simvastatin 20 MG Simvastatin 20 MG No 1{table t_in_th e_eveni ng} QD Simvastati n 20 MG Nebulizer - Nebulizer - No Ne bulizer - Losartan Potassium 50 MG Losartan Potassium 50 MG No 1{table t} QD Losartan Potassium 50 MG Allopurinol 100 MG Allopurinol 100 MG No Allopurino l 100 MG Dulera 100-5 MCG/ACT Dulera 100-5 MCG/ACT No 2{puffs } BID Dulera 100-5 MCG/ACT Allopurinol 100 MG Allopurinol 100 MG No Allopurino l 100 MG ProAir HFA 108 (90 Base) MCG/ACT ProAir HFA 108 (90 Base) MCG/ACT No 2{puffs _as_nee ded} QID ProAir HFA 108 (90 Base) MCG/ACT Losartan Potassium 50 MG Losartan Potassium 50 MG No 1{table t} QD Losartan Potassium 50 MG Dulera 100-5 MCG/ACT Dulera 100-5 MCG/ACT No 2{puffs } BID Dulera 100-5 MCG/ACT Simvastatin 20 MG Simvastatin 20 MG No Simvastati n 20 MG Allopurinol 100 MG Allopurinol 100 MG No Allopurino l 100 MG Dulera 100-5 MCG/ACT Dulera 100-5 MCG/ACT No 2{puffs } BID Dulera 100-5 MCG/ACT Simvastatin 20 MG Simvastatin 20 MG No Simvastati n 20 MG Losartan Potassium 50 MG Losartan Potassium 50 MG No Losartan Potassium 50 MG Allopurinol 100 MG Allopurinol 100 MG No Allopurino l 100 MG Dulera 100-5 MCG/ACT Dulera 100-5 MCG/ACT No 2{puffs } BID Dulera 100-5 MCG/ACT Simvastatin 20 MG Simvastatin 20 MG No Simvastati n 20 MG Losartan Potassium 50 MG Losartan Potassium 50 MG No Losartan Potassium 50 MG Allopurinol 100 MG Allopurinol 100 MG No Allopurino l 100 MG Dulera 100-5 MCG/ACT Dulera 100-5 MCG/ACT No 2{puffs } BID Dulera 100-5 MCG/ACT Simvastatin 20 MG Simvastatin 20 MG No Simvastati n 20 MG Losartan Potassium 50 MG Losartan Potassium 50 MG No Losartan Potassium 50 MG Dulera 100-5 MCG/ACT Dulera 100-5 MCG/ACT No 2{puffs } BID Dulera 100-5 MCG/ACT Allopurinol 100 MG Allopurinol 100 MG No Allopurino l 100 MG Simvastatin 20 MG Simvastatin 20 MG No Simvastati n 20 MG Losartan Potassium 50 MG Losartan Potassium 50 MG No Losartan Potassium 50 MG Losartan Potassium 50 MG Losartan Potassium 50 MG No Losartan Potassium 50 MG Allopurinol 100 MG Allopurinol 100 MG No Allopurino l 100 MG Nebulizer - Nebulizer - No Ne bulizer - Simvastatin 20 MG Simvastatin 20 MG No Simvastati n 20 MG Dulera 100-5 MCG/ACT Dulera 100-5 MCG/ACT No 2{puffs } BID Dulera 100-5 MCG/ACT Allopurinol 100 MG Allopurinol 100 MG No Allopurino l 100 MG Alyssa-D 24 Hour Alyssa-D 24 Hour No Alyssa-D 24 Hour Dulera 100-5 MCG/ACT Dulera 100-5 MCG/ACT No 2{puffs } BID Dulera 100-5 MCG/ACT Simvastatin 20 MG Simvastatin 20 MG No Simvastati n 20 MG Losartan Potassium 50 MG Losartan Potassium 50 MG No Losartan Potassium 50 MG Allopurinol 100 MG Allopurinol 100 MG No Allopurino l 100 MG Alyssa-D 24 Hour Alyssa-D 24 Hour No Alyssa-D 24 Hour Dulera 100-5 MCG/ACT Dulera 100-5 MCG/ACT No 2{puffs } BID Dulera 100-5 MCG/ACT Simvastatin 20 MG Simvastatin 20 MG No Simvastati n 20 MG Albuterol Sulfate HFA 108 (90 Base) MCG/ACT Albuterol Sulfate HFA 108 (90 Base) MCG/ACT No Albuterol Sulfate HFA 108 (90 Base) MCG/ACT Losartan Potassium 50 MG Losartan Potassium 50 MG No Losartan Potassium 50 MG Allopurinol 100 MG Allopurinol 100 MG No Allopurino l 100 MG Nebulizer - Nebulizer - No Ne bulizer - Losartan Potassium 50 MG Losartan Potassium 50 MG No 1{table t} QD Losartan Potassium 50 MG Dulera 100-5 MCG/ACT Dulera 100-5 MCG/ACT No 2{puffs } BID Dulera 100-5 MCG/ACT Simvastatin 20 MG Simvastatin 20 MG No Simvastati n 20 MG Immunizations Ordered Immunization Name Filled Immunization Name Date Status Comments Source Prevnar 20 (PCV20) Prevnar 20 (PCV20) 2022-11-26 14:55:00 Completed [facility] Prevnar 13 (PCV13) Prevnar 13 (PCV13) 2021-11-13 15:41:00 Completed [facility] Prevnar 13 (PCV13) Prevnar 13 (PCV13) 2021-11-13 15:41:00 Completed [facility] Prevnar 13 (PCV13) Prevnar 13 (PCV13) 2021-11-13 15:41:00 Completed [facility] Prevnar 13 (PCV13) Prevnar 13 (PCV13) 2021-11-13 15:41:00 Completed [facility] Prevnar 13 (PCV13) Prevnar 13 (PCV13) 2021-11-13 15:41:00 Completed [facility] Prevnar 13 (PCV13) Prevnar 13 (PCV13) 2021-11-13 15:41:00 Completed [facility] Prevnar 13 (PCV13) Prevnar 13 (PCV13) 2021-11-13 15:41:00 Completed [facility] Prevnar 13 (PCV13) Prevnar 13 (PCV13) 2021-11-13 15:41:00 Completed [facility] Prevnar 13 (PCV13) Prevnar 13 (PCV13) 2021-11-13 15:41:00 Completed [facility] SARS-COV-2 COVID-19 MODERNA 12+ YRS VACCINE 2020-12-10 00:00:00 Completed [facility] SARS-COV-2 COVID-19 MODERNA 12+ YRS VACCINE 2020-12-10 00:00:00 Completed [facility] SARS-COV-2 COVID-19 MODERNA 12+ YRS VACCINE 2020-11-12 00:00:00 Completed [facility] SARS-COV-2 COVID-19 MODERNA 12+ YRS VACCINE 2020-11-12 00:00:00 Completed [facility] Afluria single dose Afluria single dose 2020-05-11 10:16:00 Completed [facility] Afluria single dose Afluria single dose 2020-05-11 10:16:00 Completed [facility] Afluria single dose Afluria single dose 2020-05-11 10:16:00 Completed [facility] Afluria single dose Afluria single dose 2020-05-11 10:16:00 Completed [facility] Afluria single dose Afluria single dose 2020-05-11 10:16:00 Completed [facility] Afluria single dose Afluria single dose 2020-05-11 10:16:00 Completed [facility] Afluria single dose Afluria single dose 2020-05-11 10:16:00 Completed [facility] Afluria single dose Afluria single dose 2020-05-11 10:16:00 Completed [facility] Afluria single dose Afluria single dose 2020-05-11 10:16:00 Completed [facility] Afluria single dose Afluria single dose 2020-05-11 10:16:00 Completed [facility] SARS-COV-2 COVID-19 MODERNA 12+ YRS VACCINE Unknown Completed [facility] SARS-COV-2 COVID-19 MODERNA 12+ YRS VACCINE Unknown Completed [facility] SARS-COV-2 COVID-19 MODERNA 12+ YRS VACCINE Unknown Completed [facility] SARS-COV-2 COVID-19 MODERNA 12+ YRS VACCINE Unknown Completed [facility] SARS-COV-2 COVID-19 MODERNA 12+ YRS VACCINE Unknown Completed [facility] SARS-COV-2 COVID-19 MODERNA 12+ YRS VACCINE Unknown Completed [facility] SARS-COV-2 COVID-19 MODERNA 12+ YRS VACCINE Unknown Completed [facility] SARS-COV-2 COVID-19 MODERNA 12+ YRS VACCINE Unknown Completed [facility] SARS-COV-2 COVID-19 MODERNA 12+ YRS VACCINE Unknown Completed [facility] SARS-COV-2 COVID-19 MODERNA 12+ YRS VACCINE Unknown Completed [facility] SARS-COV-2 COVID-19 MODERNA 12+ YRS VACCINE Unknown Completed [facility] SARS-COV-2 COVID-19 MODERNA 12+ YRS VACCINE Unknown Completed [facility] SARS-COV-2 COVID-19 MODERNA 12+ YRS VACCINE Unknown Completed [facility] SARS-COV-2 COVID-19 MODERNA 12+ YRS VACCINE Unknown Completed [facility] SARS-COV-2 COVID-19 MODERNA 12+ YRS VACCINE Unknown Completed [facility] SARS-COV-2 COVID-19 MODERNA 12+ YRS VACCINE Unknown Completed [facility] SARS-COV-2 COVID-19 MODERNA 12+ YRS VACCINE Unknown Completed [facility] SARS-COV-2 COVID-19 MODERNA 12+ YRS VACCINE Unknown Completed [facility] SARS-COV-2 COVID-19 MODERNA 12+ YRS VACCINE Unknown Completed [facility] SARS-COV-2 COVID-19 MODERNA 12+ YRS VACCINE Unknown Completed [facility] SARS-COV-2 COVID-19 MODERNA 12+ YRS VACCINE Unknown Completed [facility] SARS-COV-2 COVID-19 MODERNA 12+ YRS VACCINE Unknown Completed [facility] Prevnar 20 (PCV20) Prevnar 20 (PCV20) Unknown Completed [facility] Afluria single dose Afluria single dose Unknown Completed [facility] Prevnar 13 (PCV13) Prevnar 13 (PCV13) Unknown Completed [facility] Prevnar 20 (PCV20) Prevnar 20 (PCV20) Unknown Completed [facility] Afluria single dose Afluria single dose Unknown Completed [facility] Prevnar 13 (PCV13) Prevnar 13 (PCV13) Unknown Completed [facility] Prevnar 20 (PCV20) Prevnar 20 (PCV20) Unknown Completed [facility] Afluria single dose Afluria single dose Unknown Completed [facility] Prevnar 13 (PCV13) Prevnar 13 (PCV13) Unknown Completed [facility] Prevnar 20 (PCV20) Prevnar 20 (PCV20) Unknown Completed [facility] FluAD Quad SD FluAD Quad SD Unknown Completed [facility] Afluria single dose Afluria single dose Unknown Completed [facility] Prevnar 13 (PCV13) Prevnar 13 (PCV13) Unknown Completed [facility] Prevnar 20 (PCV20) Prevnar 20 (PCV20) Unknown Completed [facility] FluAD Quad SD FluAD Quad SD Unknown Completed [facility] Afluria single dose Afluria single dose Unknown Completed [facility] Prevnar 13 (PCV13) Prevnar 13 (PCV13) Unknown Completed [facility] Prevnar 20 (PCV20) Prevnar 20 (PCV20) Unknown Completed [facility] Fluad (aIIV4) - SDS - 0.5mL Fluad (aIIV4) - SDS - 0.5mL Unknown Completed [facility] Afluria (IIV4) - 3 years and older - SDS - 0.5mL Afluria (IIV4) - 3 years and older - SDS - 0.5mL Unknown Completed [facility] Prevnar 13 (PCV13) Prevnar 13 (PCV13) Unknown Completed [facility] Prevnar 20 (PCV20) Prevnar 20 (PCV20) Unknown Completed [facility] Fluad (aIIV4) - SDS - 0.5mL Fluad (aIIV4) - SDS - 0.5mL Unknown Completed [facility] Afluria (IIV4) - 3 years and older - SDS - 0.5mL Afluria (IIV4) - 3 years and older - SDS - 0.5mL Unknown Completed [facility] Prevnar 13 (PCV13) Prevnar 13 (PCV13) Unknown Completed [facility] Prevnar 20 (PCV20) Prevnar 20 (PCV20) Unknown Completed [facility] Fluad (aIIV4) - SDS - 0.5mL Fluad (aIIV4) - SDS - 0.5mL Unknown Completed [facility] Afluria (IIV4) - 3 years and older - SDS - 0.5mL Afluria (IIV4) - 3 years and older - SDS - 0.5mL Unknown Completed [facility] Prevnar 13 (PCV13) Prevnar 13 (PCV13) Unknown Completed [facility] Prevnar 20 (PCV20) Prevnar 20 (PCV20) Unknown Completed [facility] Fluad (aIIV4) - SDS - 0.5mL Fluad (aIIV4) - SDS - 0.5mL Unknown Completed [facility] Afluria (IIV4) - 3 years and older - SDS - 0.5mL Afluria (IIV4) - 3 years and older - SDS - 0.5mL Unknown Completed [facility] Prevnar 13 (PCV13) Prevnar 13 (PCV13) Unknown Completed [facility] Prevnar 20 (PCV20) Prevnar 20 (PCV20) Unknown Completed [facility] Fluad (aIIV4) - SDS - 0.5mL Fluad (aIIV4) - SDS - 0.5mL Unknown Completed [facility] Afluria (IIV4) - 3 years and older - SDS - 0.5mL Afluria (IIV4) - 3 years and older - SDS - 0.5mL Unknown Completed [facility] Prevnar 13 (PCV13) Prevnar 13 (PCV13) Unknown Completed [facility] Prevnar 20 (PCV20) Prevnar 20 (PCV20) Unknown Completed [facility] Fluad (aIIV4) - SDS - 0.5mL Fluad (aIIV4) - SDS - 0.5mL Unknown Completed [facility] Afluria (IIV4) - 3 years and older - SDS - 0.5mL Afluria (IIV4) - 3 years and older - SDS - 0.5mL Unknown Completed [facility] Prevnar 13 (PCV13) Prevnar 13 (PCV13) Unknown Completed [facility] Prevnar 20 (PCV20) Prevnar 20 (PCV20) Unknown Completed [facility] Fluad (aIIV4) - SDS - 0.5mL Fluad (aIIV4) - SDS - 0.5mL Unknown Completed [facility] Afluria (IIV4) - 3 years and older - SDS - 0.5mL Afluria (IIV4) - 3 years and older - SDS - 0.5mL Unknown Completed [facility] Prevnar 13 (PCV13) Prevnar 13 (PCV13) Unknown Completed [facility] Prevnar 20 (PCV20) Prevnar 20 (PCV20) Unknown Completed [facility] Fluad (aIIV4) - SDS - 0.5mL Fluad (aIIV4) - SDS - 0.5mL Unknown Completed [facility] Afluria (IIV4) - 3 years and older - SDS - 0.5mL Afluria (IIV4) - 3 years and older - SDS - 0.5mL Unknown Completed [facility] Prevnar 13 (PCV13) Prevnar 13 (PCV13) Unknown Completed [facility] Vital Signs Vital Name Observation Time Observation Value Comments S ource Systolic blood pressure 2024-02-17 15:07:00 165 mm[Hg] [facility] Diastolic blood pressure 2024-02-17 15:07:00 96 mm[Hg] [facility] Heart rate 2024-02-17 15:07:00 66 /min [facility] Oxygen saturation in Arterial blood by Pulse oximetry 2024-02-17 15:07:00 94 /min [facility] Body temperature 2024-02-17 15:06:00 36.78 Josephine [facility] Respiratory rate 2024-02-17 15:06:00 20 /min [facility] Body height 2024-02-17 15:06:00 175.3 cm [facility] Body weight 2024-02-17 15:06:00 118.389 kg [facility] BMI 2024-02-17 15:06:00 38.54 kg/m2 [facility] height 2023-11-28 10:20:00 67 [in_i] Commo n [facility] weight 2023-11-28 10:20:00 258.2 [lb_av] Co mmon [facility] temperature 2023-11-28 10:20:00 97.7 [degF] Com mon [facility] bmi 2023-11-28 10:20:00 40.44 kg/m2 Comm on [facility] oximetry 2023-11-28 10:20:00 96 % Commo n [facility] blood pressure systolic 2023-11-28 10:20:00 138 mm[Hg] [facility] blood pressure diastolic 2023-11-28 10:20:00 78 mm[Hg] [facility] height 2023-11-28 10:30:00 67 [in_i] Commo n [facility] weight 2023-11-28 10:30:00 258.2 [lb_av] Co mmon [facility] temperature 2023-11-28 10:30:00 97.7 [degF] Com mon [facility] bmi 2023-11-28 10:30:00 40.44 kg/m2 Comm on [facility] oximetry 2023-11-28 10:30:00 96 % Commo n [facility] respiratory rate 2023-11-28 10:30:00 17 /min [facility] blood pressure systolic 2023-11-28 10:30:00 138 mm[Hg] [facility] blood pressure diastolic 2023-11-28 10:30:00 78 mm[Hg] [facility] Systolic blood pressure 2023-08-20 16:39:00 153 mm[Hg] [facility] Diastolic blood pressure 2023-08-20 16:39:00 86 mm[Hg] [facility] Heart rate 2023-08-20 16:36:00 74 /min [facility] Body temperature 2023-08-20 16:36:00 36.17 Josephine [facility] Respiratory rate 2023-08-20 16:36:00 18 /min [facility] Body height 2023-08-20 16:36:00 175.3 cm [facility] Body weight 2023-08-20 16:36:00 114.669 kg [facility] BMI 2023-08-20 16:36:00 37.33 kg/m2 [facility] Oxygen saturation in Arterial blood by Pulse oximetry 2023-08-20 16:36:00 94 /min [facility] height 2023-07-28 10:30:00 67 [in_i] Commo n [facility] weight 2023-07-28 10:30:00 254.0 [lb_av] Co mmon [facility] temperature 2023-07-28 10:30:00 98.0 [degF] Com [facility] bmi 2023-07-28 10:30:00 39.78 kg/m2 Comm on [facility] oximetry 2023-07-28 10:30:00 97 % Commo n [facility] respiratory rate 2023-07-28 10:30:00 16 /min Common [facility] blood pressure systolic 2023-07-28 10:30:00 135 mm[Hg] [facility] blood pressure diastolic 2023-07-28 10:30:00 78 mm[Hg] Common [facility] height 2023-03-26 10:20:00 67 [in_i] Commo n [facility] weight 2023-03-26 10:20:00 249.0 [lb_av] Co mmon [facility] temperature 2023-03-26 10:20:00 98.0 [degF] Com [facility] bmi 2023-03-26 10:20:00 38.99 kg/m2 Comm on [facility] oximetry 2023-03-26 10:20:00 95 % Commo n [facility] respiratory rate 2023-03-26 10:20:00 16 /min Common [facility] blood pressure systolic 2023-03-26 10:20:00 137 mm[Hg] [facility] blood pressure diastolic 2023-03-26 10:20:00 68 mm[Hg] Common [facility] height 2022-12-16 14:10:00 67 [in_i] Commo n [facility] weight 2022-12-16 14:10:00 244.5 [lb_av] Co mmon [facility] temperature 2022-12-16 14:10:00 97.3 [degF] Com mon [facility] bmi 2022-12-16 14:10:00 38.29 kg/m2 Comm on [facility] oximetry 2022-12-16 14:10:00 96 % Commo n [facility] respiratory rate 2022-12-16 14:10:00 17 /min Common [facility] blood pressure systolic 2022-12-16 14:10:00 138 mm[Hg] [facility] blood pressure diastolic 2022-12-16 14:10:00 74 mm[Hg] [facility] height 2022-11-26 13:10:00 67 [in_i] Commo n [facility] weight 2022-11-26 13:10:00 244 [lb_av] Comm on [facility] temperature 2022-11-26 13:10:00 96.9 [degF] Com mon [facility] bmi 2022-11-26 13:10:00 38.21 kg/m2 Comm on [facility] oximetry 2022-11-26 13:10:00 97 % Commo n [facility] respiratory rate 2022-11-26 13:10:00 16 /min [facility] blood pressure systolic 2022-11-26 13:10:00 148 mm[Hg] [facility] blood pressure diastolic 2022-11-26 13:10:00 80 mm[Hg] [facility] height 2022-11-26 13:00:00 67 [in_i] Commo n [facility] weight 2022-11-26 13:00:00 244 [lb_av] Comm on [facility] temperature 2022-11-26 13:00:00 96.9 [degF] Com [facility] bmi 2022-11-26 13:00:00 38.21 kg/m2 Comm on [facility] oximetry 2022-11-26 13:00:00 97 % Commo n [facility] respiratory rate 2022-11-26 13:00:00 16 /min Common [facility] blood pressure systolic 2022-11-26 13:00:00 148 mm[Hg] [facility] blood pressure diastolic 2022-11-26 13:00:00 80 mm[Hg] [facility] height 2022-05-22 14:10:00 67 [in_i] Commo n [facility] weight 2022-05-22 14:10:00 243 [lb_av] Comm on [facility] temperature 2022-05-22 14:10:00 96.9 [degF] Com mon [facility] bmi 2022-05-22 14:10:00 38.06 kg/m2 Comm on [facility] oximetry 2022-05-22 14:10:00 96 % Commo n [facility] respiratory rate 2022-05-22 14:10:00 16 /min Common [facility] blood pressure systolic 2022-05-22 14:10:00 134 mm[Hg] [facility] blood pressure diastolic 2022-05-22 14:10:00 76 mm[Hg] [facility] height 2021-11-30 11:30:00 69 [in_i] Commo n [facility] weight 2021-11-30 11:30:00 249.6 [lb_av] Co mmon [facility] temperature 2021-11-30 11:30:00 98.8 [degF] Com mon [facility] bmi 2021-11-30 11:30:00 36.86 kg/m2 Comm on [facility] oximetry 2021-11-30 11:30:00 95 % Commo n [facility] respiratory rate 2021-11-30 11:30:00 16 /min Common [facility] blood pressure systolic 2021-11-30 11:30:00 132 mm[Hg] [facility] blood pressure diastolic 2021-11-30 11:30:00 66 mm[Hg] [facility] height 2021-11-13 15:10:00 69 [in_i] Commo n [facility] weight 2021-11-13 15:10:00 249.3 [lb_av] Co mmon [facility] temperature 2021-11-13 15:10:00 98.0 [degF] Com [facility] bmi 2021-11-13 15:10:00 36.81 kg/m2 Comm on [facility] oximetry 2021-11-13 15:10:00 95 % Commo n [facility] respiratory rate 2021-11-13 15:10:00 16 /min Common [facility] blood pressure systolic 2021-11-13 15:10:00 134 mm[Hg] [facility] blood pressure diastolic 2021-11-13 15:10:00 67 mm[Hg] [facility] height 2021-11-13 15:00:00 69 [in_i] Commo n [facility] weight 2021-11-13 15:00:00 249.3 [lb_av] Co mmon [facility] temperature 2021-11-13 15:00:00 98.0 [degF] Com [facility] bmi 2021-11-13 15:00:00 36.81 kg/m2 Comm on [facility] oximetry 2021-11-13 15:00:00 95 % Commo n [facility] respiratory rate 2021-11-13 15:00:00 16 /min [facility] blood pressure systolic 2021-11-13 15:00:00 134 mm[Hg] [facility] blood pressure diastolic 2021-11-13 15:00:00 67 mm[Hg] [facility] Procedures Procedure Date / Time Performed Performing Clinician Source POCT URINALYSIS AUTO 2024-02-17 15:24:00 Josh Cao [facility] YOGI,POST-VOID RES,US,NON-IMAGING 2024-02-17 00:00:00 Aj Cao [facility] US RETROPERITONEAL COMPLETE 2023-08-25 16:35:49 Aubrey [facility] CONSENT/REFUSAL FOR DIAGNOSIS AND TREATMENT 2023-08-25 15:55:19 Doctor Unassigned, [place] [facility] POCT URINALYSIS AUTO 2023-08-20 16:49:00 Jennyfer Iglesias [facility] Encounters Start Date/Time End Date/Time Encounter Type Admission Type Attending [facility] Care Department Encounter ID Source 2021-11-13 14:56:00 Outpatient Sloan, John STLMLC STLMLC [id number] [facility] 2021-11-09 15:38:00 Outpatient Sloan, John STLMLC STLMLC [id number] [facility] 2021-10-31 13:31:59 Outpatient Sloan, John STLMLC STLMLC [id number] [facility] 2021-10-31 12:49:31 Outpatient Sloan, John STLMLC STLMLC [id number] [facility] 2021-10-31 12:31:58 Outpatient Sloan, John STLMLC STLMLC [id number] [facility] 2021-10-31 12:26:10 Outpatient Sloan, John STLMLC STLMLC [id number] [facility] 2021-10-31 11:54:31 Outpatient Sloan, John STLMLC STLMLC [id number] [facility] 2021-10-31 11:17:27 Outpatient Sloan, John STLMLC STLMLC [id number] [facility] 2021-10-31 11:09:13 Outpatient Eddie Sloanh STLMLC STLMLC [id number] [facility] 2024-03-15 00:00:00 2024-03-15 00:00:00 Outpatient R AUBREY [facility] [id number] [facility] 2024-02-17 10:15:00 2024-02-17 10:50:33 Outpatient R AUBREY [facility] [id number] [facility] 2024-02-17 10:15:00 2024-02-17 10:50:33 Office Visit [facility] [id number] [id number] [id number] [facility] 2023-12-30 00:00:00 2023-12-30 00:00:00 (TEL) STLC STLC [id number] [facility] 2023-12-22 00:00:00 2023-12-22 00:00:00 [facility] [id number] [id number] [id number] [facility] 2023-11-28 00:00:00 2023-11-28 00:00:00 OFFICE VISIT ESTAB PT LEVEL 4 STLMLC STLC [id number] [facility] 2023-11-28 00:00:00 2023-11-28 00:00:00 SUB ANNUAL [facility] [id number] [facility] 2023-11-24 00:00:00 2023-11-24 00:00:00 (TEL) STLC STLMLC [id number] [facility] 2023-11-17 00:00:00 2023-11-17 00:00:00 (WEB) STLMLC STLMLC [id number] [facility] 2023-09-25 00:00:00 2023-09-25 00:00:00 (WEB) STLMLC STLC [id number] [facility] 2023-09-24 00:00:00 2023-09-24 00:00:00 (WEB) STLC STLC [id number] [facility] 2023-08-26 00:00:00 2023-08-26 00:00:00 Telephone Christenivonne [facility] BUILDING [id number] 350.1.13.10 4.2.7.2.686 [id number] [facility] 2023-08-25 09:55:35 2023-08-25 23:59:00 Outpatient R AMEENATALAIvonne [facility] [id number] [facility] 2023-08-25 09:55:35 2023-08-25 23:59:00 Hospital Encounter Aubrey [facility] 1.840.114 350.1.13.10 4.2.7.2.686 [id number] [facility] 2023-08-25 00:00:00 2023-08-25 00:00:00 Orders Only Doctor Unassigned, [place] [facility] 1.84.114 350.1.13.10 4.2.7.2.686 [id number] [facility] 2023-08-20 11:15:00 2023-08-20 11:30:00 News Editor Visit Pob, Adc Lab Main Katty Iglesias [facility] BUILDING 1..840.114 350.1.13.10 4.2.7.2.686 [id number] [facility] 2023-08-20 10:30:00 2023-08-20 11:17:43 Office Visit Katty Ilgesias [facility] BUILD[facility] [id number] 350.1.13.10 [id number] [id number] [facility] 2023-08-20 11:15:00 2023-08-20 11:15:00 [facility] [id number] 2023-07-28 00:00:00 2023-07-28 00:00:00 OFFICE VISIT ESTAB PT LEVEL 4 STLMLC STLC [id number] [facility] 2023-07-09 00:00:00 2023-07-09 00:00:00 Refill [facility] [id number] 350.1.13.10 4.2.7.2.686 [id number] [facility] 2023 00:00:00 2023 00:00:00 Telephone [facility] [id number] 350.1.13.10 4.2.7.2.686 [id number] [facility] 2023-03-26 00:00:00 2023-03-26 00:00:00 OFFICE VISIT ESTAB PT LEVEL 4 STLMLC STLC [id number] [facility] 2023-01-30 11:45:00 2023-01-30 12:00:00 News Editor Visit Pob, Adc Lab Main [facility] [id number] 350.1.13.10 4.2.7.2.686 [id number] [facility] 2023-01-30 11:45:00 2023-01-30 11:45:00 Outpatient [facility] [id number] [facility] 2023-01-21 16:00:00 2023-01-21 16:34:27 Outpatient R AJ CAO [facility] [id number] [facility] 2022-12-16 00:00:00 2022-12-16 00:00:00 OFFICE VISIT ESTAB PT LEVEL 3 STLMLC STLMLC [id number] [facility] 2022-11-26 00:00:00 2022-11-26 00:00:00 OFFICE VISIT ESTAB PT LEVEL 3 STLMLC STLMLC [id number] [facility] 2022-11-26 00:00:00 2022-11-26 00:00:00 SUB ANNUAL [facility] WELLNESS VISIT STLMLC STLMLC [id number] [facility] 2022-11-14 00:00:00 2022-11-14 00:00:00 (TEL) STLMLC STLMLC [id number] [facility] 2022-06-14 00:00:00 2022-06-14 00:00:00 (WEB) STLMLC STLMLC [id number] [facility] 2022-05-22 00:00:00 2022-05-22 00:00:00 OFFICE VISIT ESTAB PT LEVEL 4 STLMLC STLMLC [id number] [facility] 2022-05-22 00:00:00 2022-05-22 00:00:00 (TEL) STLMLC STLMLC [id number] [facility] 2022-03-05 00:00:00 2022-03-05 00:00:00 (TEL) STLMLC STLMLC [id number] [facility] 2021-12-24 00:00:00 2021-12-24 00:00:00 (TEL) STLMLC STLMLC [id number] [facility] 2021-12-07 00:00:00 2021-12-07 00:00:00 (TEL) STLMLC STLMLC [id number] [facility] 2021-11-30 00:00:00 2021-11-30 00:00:00 OFFICE VISIT EST PT LEVEL 3 STLMLC STLMLC [id number] [facility] 2021-11-13 00:00:00 2021-11-13 00:00:00 OFFICE VISIT ESTAB PT LEVEL 3 STLMLC STLMLC [id number] [facility] 2021-11-13 00:00:00 2021-11-13 00:00:00 WELCOME TO MEDICARE PREV PHY EXAM STLMLC STLMLC [id number] [facility] 2021-07-05 00:00:00 2021-07-05 00:00:00 (TEL) STLMLC STLMLC [id number] [facility] 2021-06-06 00:00:00 2021-06-06 00:00:00 Outpatient STLMLC STLMLC [id number] [facility] 2021-05-18 00:00:00 2021-05-18 00:00:00 Outpatient STLMLC STLMLC [id number] [facility] 2021-05-10 00:00:00 2021-05-10 00:00:00 Outpatient STLMLC STLMLC [id number] [facility] 2021-03-08 00:00:00 2021-03-08 00:00:00 Outpatient STLMLC STLMLC [id number] [facility] 2021-03-07 00:00:00 2021-03-07 00:00:00 Outpatient STLMLC STLMLC [id number] [facility] 2021-02-22 00:00:00 2021-02-22 00:00:00 Outpatient STLMLC STLMLC [id number] [facility] 2020-11-29 00:00:00 2020-11-29 00:00:00 Outpatient STLMLC STLMLC [id number] [facility] 2020-11-03 00:00:00 2020-11-03 00:00:00 Outpatient STLMLC STLMLC [id number] [facility] 2020-11-02 00:00:00 2020-11-02 00:00:00 Outpatient STLMLC STLMLC [id number] [facility] 2020-07-25 00:00:00 2020-07-25 00:00:00 Outpatient STLMLC STLMLC [id number] [facility] 2020-04-24 10:15:00 2020-04-24 10:15:00 [facility] [id number] [facility] 2020-02-14 14:38:00 2020-02-14 14:38:00 [facility] [id number] [facility] 2020-01-25 08:32:00 2020-01-25 08:32:00 [facility] [id number] [facility] 2020-01-24 11:44:00 2020-01-24 11:44:00 [facility] [id number] [facility] 2019-12-20 11:39:00 2019-12-20 11:39:00 [facility] [id number] [facility] 2019-11-30 08:17:00 2019-11-30 08:17:00 [facility] [id number] [facility] 2019-11-29 10:15:00 2019-11-29 10:15:00 [facility] [id number] [facility] 2019-09-14 09:45:00 2019-09-14 09:45:00 [facility] [id number] [facility] 2019-07-26 10:45:00 2019-07-26 10:45:00 [facility] [id number] [facility] 2018-11-23 14:00:00 2018-11-23 14:00:00 Outpatient [facility] [id number] [facility] 2018-10-19 11:30:00 2018-10-19 11:30:00 Outpatient [facility] [id number] [facility] 2018-09-22 10:15:00 2018-09-22 10:15:00 Outpatient [facility] [id number] [facility] 2018-07-14 08:45:00 2018-07-14 08:45:00 Outpatient [facility] [id number] [facility] 2018-03-18 10:15:00 2018-03-18 10:15:00 Outpatient [facility] [id number] [facility] Results Test Description Test Time Test Comments Results Result Co [facility] [id number] 15:25:00 * Test Item Value Reference Range Interpretation Comme nts POCT U SP GRAV (test code = 3255) 1.020 mg/dl 1.005-1.025 POCT PH U (test code = 3254) 7.0 mg/dl 5-8 POCT U LEUK EST (test code = 3263) negative Negative - Negative POCT U NIT (test code = 3262) negative Negative - Negati ve POCT U PROT (test code = 3259) negative Negative - Negative POCT U GLU (test code = 3256) negative Negative - Negati ve POCT U KETONE (test code = 3258) negative Negative - Negative POCT U UROBILI (test code = 3260) 1.0 mg/dl 0.2-1 POCT U BILI (test code = 3261) negative Negative - Negative POCT U BLD (test code = 3257) negative Negative - Negati ve POCT U COLOR (test code = 3266) yellow POCT U APPEAR (test code = 3267) clear [facility]-VOID RES,US,[id number] 00:00:00* Test Item Value Reference Range Interpretation Comme nts PVR (URINE VOLUME) (test code = 5193) 1 ml 0-100 [facility] RES,US,[id number] 00:00:00* Test Item Value Reference Range Interpretation Comme nts PVR (URINE VOLUME) (test code = 5193) 1 ml 0-100 [facility], [id number] 16:50:00 * Test Item Value Reference Range Interpretation Comme nts POCT U SP GRAV (test code = 3255) 1.015 mg/dl 1.005-1.025 POCT PH U (test code = 3254) 6.0 mg/dl 5-8 POCT U LEUK EST (test code = 3263) Negative Negative - Negative POCT U NIT (test code = 3262) Negative Negative - Negati ve POCT U PROT (test code = 3259) Negative Negative - Negative POCT U GLU (test code = 3256) Negative Negative - Negati ve POCT U KETONE (test code = 3258) Negative Negative - Negative POCT U UROBILI (test code = 3260) 0.2 mg/dl 0.2-1 POCT U BILI (test code = 3261) Negative Negative - Negative POCT U BLD (test code = 3257) Negative Negative - Negati ve POCT U COLOR (test code = 3266) Yellow POCT U APPEAR (test code = 3267) [facility] [id number] 16:50:00 * Test Item Value Reference Range Interpretation Comme nts POCT U SP GRAV (test code = 3255) 1.015 mg/dl 1.005-1.025 POCT PH U (test code = 3254) 6.0 mg/dl 5-8 POCT U LEUK EST (test code = 3263) Negative Negative - Negative POCT U NIT (test code = 3262) Negative Negative - Negati ve POCT U PROT (test code = 3259) Negative Negative - Negative POCT U GLU (test code = 3256) Negative Negative - Negati ve POCT U KETONE (test code = 3258) Negative Negative - Negative POCT U UROBILI (test code = 3260) 0.2 mg/dl 0.2-1 POCT U BILI (test code = 3261) Negative Negative - Negative POCT U BLD (test code = 3257) Negative Negative - Negati ve POCT U COLOR (test code = 3266) Yellow POCT U APPEAR (test code = 3267) Clear [facility]IP[facility] PAN[facility] WITH REFLEX DIRECT [id number] 00:00:00* Test Item Value Reference Range Interpretation Comme nts CALC LDL CHOL (test code = 65465-0) 97 MG/DL See_Comment [Automated [employer]] The system which generated this result transmitted reference range: <100 MG/DL. The reference range was not used to interpret this result as normal/abnormal. CHOLESTEROL (test code = 2093-3) 165 MG/DL See_Comment [Automated [employer]] The system which generated this result transmitted reference range: <200 MG/DL. The reference range was not used to interpret this result as normal/abnormal. HDL CHOLESTEROL (test code = 2085-9) 43 MG/DL See_Comment [Automated [employer]] The system which generated this result transmitted reference range: >39 MG/DL. The reference range was not used to interpret this result as normal/abnormal. RISK RATIO LDL/HDL (test code = 21211-4) 2.26 RATIO See_Comment [Automated message] The system which generated this result transmitted reference range: <3.55 RATIO. The reference range was not used to interpret this result as normal/abnormal. TRIGLYCERIDES (test code = 2571-8) 146 MG/DL See_Comment [Automated [employer]] The system which generated this result transmitted reference range: <150 MG/DL. The reference range was not used to interpret this result as normal/abnormal. PATHOLOGIST SMEAR [id number] 00:00:00* Test Item Value Reference Range Interpretation Comme nts BASOPHILS (test code = 41721-1) 0.8 % COMMENTS (test code = 28817-9) (NOTE) DIAGNOSIS: (test code = 45699-3) (NOTE) EOSINOPHILS (test code = 76395-9) 3.4 % HEMATOCRIT (test code = 41469-3) 43.3 % See_Comment [Automated [employer]] The system which generated this result transmitted reference range: 40.0-51.0 %. The reference range was not used to interpret this result as normal/abnormal. HEMOGLOBIN (test code = 718-7) 14.7 G/DL See_Comment [Automated messa ge] The system which generated this result transmitted reference range: 13.5-17.0 G/DL. The reference range was not used to interpret this result as normal/abnormal. LYMPHOCYTES (test code = 73619-5) 39.5 % MCH (test code = 25560-4) 33.5 PG See_Comment H [Automated messa ge] The system which generated this result transmitted reference range: 25.0-33.0 PG. The reference range was not used to interpret this result as normal/abnormal. MCHC (test code = 27564-3) 33.9 G/DL See_Comment [Automated messa ge] The system which generated this result transmitted reference range: 31.0-36.0 G/DL. The reference range was not used to interpret this result as normal/abnormal. MCV (test code = 66984-9) 98.6 fL See_Comment [Automated messa ge] The system which generated this result transmitted reference range: 80.0-99.0 fL. The reference range was not used to interpret this result as normal/abnormal. MICROSCOPIC DESCRIPTION: (test code = 41868-4) (NOTE) MONOCYTES (test code = 24971-8) 5.0 % NEUTROPHILS (test code = 20384-5) 51.3 % PATHOLOGIST: (test code = 78784-2) (NOTE) PLATELET COUNT (test code = 94805-5) 174 K/UL See_Comment [Automated messa ge] The system which generated this result transmitted reference range: 130-400 K/UL. The reference range was not used to interpret this result as normal/abnormal. RBC (test code = 89612-9) 4.39 M/UL See_Comment L [Automated messa ge] The system which generated this result transmitted reference range: 4.50-6.10 M/UL. The reference range was not used to interpret this result as normal/abnormal. RDW (test code = 53242-1) 11.1 % See_Comment L [Automated messa ge] The system which generated this result transmitted reference range: 11.5-15.0 %. The reference range was not used to interpret this result as normal/abnormal. WBC (test code = 30899-1) 8.0 K/UL See_Comment [Automated messa ge] The system which generated this result transmitted reference range: 3.5-11.0 K/UL. The reference range was not used to interpret this result as normal/abnormal. COMPREHENSIVE METABOLIC [id number] 00:00:00* Test Item Value Reference Range Interpretation Comme nts ALBUMIN (test code = 1751-7) 4.4 G/DL See_Comment [Automated messa ge] The system which generated this result transmitted reference range: 3.5-5.2 G/DL. The reference range was not used to interpret this result as normal/abnormal. ALKALINE PHOSPHATASE (test code = 6768-6) 69 U/L See_Comment [Automated message] The system which generated this result transmitted reference range: 40-125 U/L. The reference range was not used to interpret this result as normal/abnormal. BILIRUBIN, TOTAL (test code = 1975-2) 0.9 MG/DL See_Comment [Automated message] The system which generated this result transmitted reference range: <=1.2 MG/DL. The reference range was not used to interpret this result as normal/abnormal. BUN (test code = 3094-0) 15 MG/DL See_Comment [Automated messa ge] The system which generated this result transmitted reference range: 8-23 MG/DL. The reference range was not used to interpret this result as normal/abnormal. CALCIUM (test code = 38006-0) 9.7 MG/DL See_Comment [Automated messa ge] The system which generated this result transmitted reference range: 8.5-10.5 MG/DL. The reference range was not used to interpret this result as normal/abnormal. CALC A/G RATIO (test code = 1759-0) 1.9 RATIO See_Comment [Automated messa ge] The system which generated this result transmitted reference range: 1.0-2.6 RATIO. The reference range was not used to interpret this result as normal/abnormal. CALC BUN/CREAT (test code = 3097-3) 16 RATIO See_Comment [Automated messa ge] The system which generated this result transmitted reference range: 6-28 RATIO. The reference range was not used to interpret this result as normal/abnormal. CALC GLOBULIN (test code = 37088-7) 2.3 G/DL See_Comment [Automated messa ge] The system which generated this result transmitted reference range: 1.9-3.7 G/DL. The reference range was not used to interpret this result as normal/abnormal. CARBON DIOXIDE (test code = 1962-8) 25 MEQ/L See_Comment [Automated messa ge] The system which generated this result transmitted reference range: 19-31 MEQ/L. The reference range was not used to interpret this result as normal/abnormal. CHLORIDE (test code = 2075-0) 102 MEQ/L See_Comment [Automated messa ge] The system which generated this result transmitted reference range: 95-107 MEQ/L. The reference range was not used to interpret this result as normal/abnormal. CREATININE (test code = 2160-0) 0.91 MG/DL See_Comment [Automated messa ge] The system which generated this result transmitted reference range: 0.80-1.40 MG/DL. The reference range was not used to interpret this result as normal/abnormal. eGFR (2020 CKD-EPI) (test code = 64366-3) 92 ML/MIN/1.73 See_Comment [Automated messa ge] The system which generated this result transmitted reference range: >60 ML/MIN/1.73. The reference range was not used to interpret this result as normal/abnormal. GLUCOSE (test code = 1558-6) 120 MG/DL See_Comment H [Automated messa ge] The system which generated this result transmitted reference range: 70-99 MG/DL. The reference range was not used to interpret this result as normal/abnormal. POTASSIUM (test code = 2823-3) 4.3 MEQ/L See_Comment [Automated messa ge] The system which generated this result transmitted reference range: 3.5-5.4 MEQ/L. The reference range was not used to interpret this result as normal/abnormal. PROTEIN, TOTAL (test code = 2885-2) 6.7 G/DL See_Comment [Automated messa ge] The system which generated this result transmitted reference range: 6.1-8.3 G/DL. The reference range was not used to interpret this result as normal/abnormal. AST (test code = 1920-8) 25 U/L See_Comment [Automated messa ge] The system which generated this result transmitted reference range: 9-50 U/L. The reference range was not used to interpret this result as normal/abnormal. ALT (test code = 1742-6) 35 U/L See_Comment [Automated messa ge] The system which generated this result transmitted reference range: 5-50 U/L. The reference range was not used to interpret this result as normal/abnormal. SODIUM (test code = 2951-2) 141 MEQ/L See_Comment [Automated messa ge] The system which generated this result transmitted reference range: 133-146 MEQ/L. The reference range was not used to interpret this result as normal/abnormal. CBC W/AUTO [id number] 00:00:00* Test Item Value Reference Range Interpretation Comme nts NUCLEATED RBCS (test code = 15523-0) 0.0 /100 WBC'S See_Comment [Automated messa ge] The system which generated this result transmitted reference range: 0.0 /100 WBC'S. The reference range was not used to interpret this result as normal/abnormal. ABSOLUTE EOSINOPHILS (test code = 45971-8) 0.66 K/UL See_Comment H [Automated messa ge] The system which generated this result transmitted reference range: 0.00-0.50 K/UL. The reference range was not used to interpret this result as normal/abnormal. ABSOLUTE LYMPHOCYTES (test code = 74943-3) 2.54 K/UL See_Comment [Automated messa ge] The system which generated this result transmitted reference range: 1.00-4.00 K/UL. The reference range was not used to interpret this result as normal/abnormal. ABSOLUTE MONOCYTES (test code = 24172-8) 0.49 K/UL See_Comment [Automated messa ge] The system which generated this result transmitted reference range: 0.2-3.8 K/UL. The reference range was not used to interpret this result as normal/abnormal. ABSOLUTE NEUTROPHILS (test code = 51072-4) 4.64 K/UL See_Comment [Automated messa ge] The system which generated this result transmitted reference range: 1.50-7.50 K/UL. The reference range was not used to interpret this result as normal/abnormal. BASOPHILS (test code = 84207-8) 0.5 % EOSINOPHILS (test code = 10655-8) 7.9 % HEMATOCRIT (test code = 58995-2) 43.7 % See_Comment [Automated messa ge] The system which generated this result transmitted reference range: 40.0-51.0 %. The reference range was not used to interpret this result as normal/abnormal. HEMOGLOBIN (test code = 718-7) 14.7 G/DL See_Comment [Automated messa ge] The system which generated this result transmitted reference range: 13.5-17.0 G/DL. The reference range was not used to interpret this result as normal/abnormal. LYMPHOCYTES (test code = 71741-9) 30.3 % MCH (test code = 25279-5) 33.6 PG See_Comment H [Automated messa ge] The system which generated this result transmitted reference range: 25.0-33.0 PG. The reference range was not used to interpret this result as normal/abnormal. MCHC (test code = 75399-6) 33.6 G/DL See_Comment [Automated messa ge] The system which generated this result transmitted reference range: 31.0-36.0 G/DL. The reference range was not used to interpret this result as normal/abnormal. MCV (test code = 79132-0) 100.0 fL See_Comment H [Automated messa ge] The system which generated this result transmitted reference range: 80.0-99.0 fL. The reference range was not used to interpret this result as normal/abnormal. MONOCYTES (test code = 98138-9) 5.8 % NEUTROPHILS (test code = 40352-3) 55.3 % PLATELET COUNT (test code = 03270-7) 161 K/UL See_Comment [Automated messa ge] The system which generated this result transmitted reference range: 130-400 K/UL. The reference range was not used to interpret this result as normal/abnormal. RBC (test code = 19000-4) 4.37 M/UL See_Comment L [Automated messa ge] The system which generated this result transmitted reference range: 4.50-6.10 M/UL. The reference range was not used to interpret this result as normal/abnormal. RDW (test code = 89036-7) 11.4 % See_Comment L [Automated messa ge] The system which generated this result transmitted reference range: 11.5-15.0 %. The reference range was not used to interpret this result as normal/abnormal. WBC (test code = 93636-4) 8.4 K/UL See_Comment [Automated messa ge] The system which generated this result transmitted reference range: 3.5-11.0 K/UL. The reference range was not used to interpret this result as normal/abnormal. PSA W/REFLEX TO FREE [id number] 00:00:00* Test Item Value Reference Range Interpretation Comme nts PROSTATE SPECIFIC AG (test code = 75973-6) 1.47 NG/ML See_Comment [Automated messa ge] The system which generated this result transmitted reference range: <=4.00 NG/ML. The reference range was not used to interpret this result as normal/abnormal. HEMOGLOBIN [id number] 00:00:00* Test Item Value Reference Range Interpretation Comme nts HEMOGLOBIN A1c (test code = 4548-4) 5.3 % See_Comment [Automated SoPosta ge] The system which generated this result transmitted reference range: 4.2-5.6 %. The reference range was not used to interpret this result as normal/abnormal. TSH REFLEX TO FREE [id number] 00:00:00* Test Item Value Reference Range Interpretation Comme nts TSH REFLEX TO FREE T4 (test code = 05495-8) 1.800 UIU/ML See_Comment [Automated SoPosta ge] The system which generated this result transmitted reference range: 0.400-4.100 UIU/ML. The reference range was not used to interpret this result as normal/abnormal. URINALYSIS (CULTURE IF INDICATED)2023-03-20 00:00:00* Test Item Value Reference Range Interpretation Comme nts APPEARANCE (test code = 5767-9) CLEAR CLEAR BILIRUBIN (test code = 5770-3) NEGATIVE NEGATIVE COLOR (test code = 5778-6) YELLOW YELLOW-STRAW GLUCOSE (test code = 5792-7) NEGATIVE NEGATIVE KETONES (test code = 5797-6) NEGATIVE NEGATIVE LEUKOCYTE ESTERASE (test code = 5799-2) NEGATIVE NEGATIVE NITRITE (test code = 5802-4) NEGATIVE NEGATIVE OCCULT BLOOD (test code = 48410-5) NEGATIVE NEGATIVE pH (test code = 5803-2) 7.5 5.0-9.0 PROTEIN (test code = 45490-3) NEGATIVE NEGATIVE SPECIFIC GRAVITY (test code = 5811-5) 1.014 1.005-1.035 UROBILINOGEN (test code = 04217-5) 1.0 MG/DL See_Comment [Automated messa ge] The system which generated this result transmitted reference range: <=2.0 MG/DL. The reference range was not used to interpret this result as normal/abnormal. LIPID PANEL WITH REFLEX DIRECT [id number] 00:00:00* Test Item Value Reference Range Interpretation Comme nts CALC LDL CHOL (test code = 51069-9) 84 MG/DL See_Comment [Automated messa ge] The system which generated this result transmitted reference range: <100 MG/DL. The reference range was not used to interpret this result as normal/abnormal. CHOLESTEROL (test code = 2093-3) 146 MG/DL See_Comment [Automated messa ge] The system which generated this result transmitted reference range: <200 MG/DL. The reference range was not used to interpret this result as normal/abnormal. HDL CHOLESTEROL (test code = 2085-9) 40 MG/DL See_Comment [Automated messa ge] The system which generated this result transmitted reference range: >39 MG/DL. The reference range was not used to interpret this result as normal/abnormal. RISK RATIO LDL/HDL (test code = 72461-8) 2.10 RATIO See_Comment [Automated message] The system which generated this result transmitted reference range: <3.55 RATIO. The reference range was not used to interpret this result as normal/abnormal. TRIGLYCERIDES (test code = 2571-8) 120 MG/DL See_Comment [Automated messa ge] The system which generated this result transmitted reference range: <150 MG/DL. The reference range was not used to interpret this result as normal/abnormal. COMPREHENSIVE METABOLIC [id number] 00:00:00* Test Item Value Reference Range Interpretation Comme nts ALBUMIN (test code = 1751-7) 4.4 G/DL See_Comment [Automated messa ge] The system which generated this result transmitted reference range: 3.5-5.2 G/DL. The reference range was not used to interpret this result as normal/abnormal. ALKALINE PHOSPHATASE (test code = 6768-6) 71 U/L See_Comment [Automated message] The system which generated this result transmitted reference range: 40-125 U/L. The reference range was not used to interpret this result as normal/abnormal. BILIRUBIN, TOTAL (test code = 1975-2) 0.7 MG/DL See_Comment [Automated message] The system which generated this result transmitted reference range: <=1.2 MG/DL. The reference range was not used to interpret this result as normal/abnormal. BUN (test code = 3094-0) 9 MG/DL See_Comment [Automated messa ge] The system which generated this result transmitted reference range: 8-23 MG/DL. The reference range was not used to interpret this result as normal/abnormal. CALCIUM (test code = 77924-4) 9.6 MG/DL See_Comment [Automated messa ge] The system which generated this result transmitted reference range: 8.5-10.5 MG/DL. The reference range was not used to interpret this result as normal/abnormal. CALC A/G RATIO (test code = 1759-0) 2.1 RATIO See_Comment [Automated messa ge] The system which generated this result transmitted reference range: 1.0-2.6 RATIO. The reference range was not used to interpret this result as normal/abnormal. CALC BUN/CREAT (test code = 3097-3) 10 RATIO See_Comment [Automated messa ge] The system which generated this result transmitted reference range: 6-28 RATIO. The reference range was not used to interpret this result as normal/abnormal. CALC GLOBULIN (test code = 35694-4) 2.1 G/DL See_Comment [Automated messa ge] The system which generated this result transmitted reference range: 1.9-3.7 G/DL. The reference range was not used to interpret this result as normal/abnormal. CARBON DIOXIDE (test code = 1963-8) 25 MEQ/L See_Comment [Automated messa ge] The system which generated this result transmitted reference range: 19-31 MEQ/L. The reference range was not used to interpret this result as normal/abnormal. CHLORIDE (test code = 2075-0) 103 MEQ/L See_Comment [Automated messa ge] The system which generated this result transmitted reference range: 95-107 MEQ/L. The reference range was not used to interpret this result as normal/abnormal. CREATININE (test code = 2160-0) 0.90 MG/DL See_Comment [Automated messa ge] The system which generated this result transmitted reference range: 0.80-1.40 MG/DL. The reference range was not used to interpret this result as normal/abnormal. eGFR (2020 CKD-EPI) (test code = 45794-8) 94 ML/MIN/1.73 See_Comment [Automated messa ge] The system which generated this result transmitted reference range: >60 ML/MIN/1.73. The reference range was not used to interpret this result as normal/abnormal. GLUCOSE (test code = 1558-6) 117 MG/DL See_Comment H [Automated messa ge] The system which generated this result transmitted reference range: 70-99 MG/DL. The reference range was not used to interpret this result as normal/abnormal. POTASSIUM (test code = 2823-3) 4.4 MEQ/L See_Comment [Automated messa ge] The system which generated this result transmitted reference range: 3.5-5.4 MEQ/L. The reference range was not used to interpret this result as normal/abnormal. PROTEIN, TOTAL (test code = 2885-2) 6.5 G/DL See_Comment [Automated messa ge] The system which generated this result transmitted reference range: 6.1-8.3 G/DL. The reference range was not used to interpret this result as normal/abnormal. AST (test code = 1920-8) 26 U/L See_Comment [Automated messa ge] The system which generated this result transmitted reference range: 9-50 U/L. The reference range was not used to interpret this result as normal/abnormal. ALT (test code = 1742-6) 30 U/L See_Comment [Automated messa ge] The system which generated this result transmitted reference range: 5-50 U/L. The reference range was not used to interpret this result as normal/abnormal. SODIUM (test code = 2951-2) 139 MEQ/L See_Comment [Automated messa ge] The system which generated this result transmitted reference range: 133-146 MEQ/L. The reference range was not used to interpret this result as normal/abnormal. Notes Date/Time Note Provider Source 2023-05-01 17:24:49 6037-08-08M17:24:49F ormatting of this note might be different from the original.Medication was filled 7., closing old encounter. 56153-7Aauqxagjx encounter KoazXY1445-10-79Q13:25:20Telephon e encounter NoteTXT1.2.840.226432.1.13.104.2. 7.2.600496|[id number] for patient [id number] L Carroll RN[address]TXTX[address] 049YFCWTFVMZAJDIFGLUYNDFJ8361-85- 27T17:25:201.2.840.965245.1.72.3. 15|1.2.840.054596.1.13.104.2.7.2. [id number] Rowena Vivas RN [facility] 2023-04-17 12:07:23 2228-74-85U63:07:23F ormatting of this note might be different from the original.Michele Stein is a 68 year old malePt calling back to check status on rx stating he has zaira rationing his rx due to no refills being put in.clotrimazole-betamethasone cream[id number] - [place], [place] - [facility] [address] [facility] [address] [place] [address] [facility] [facility] [address]Ipssw: [phone] Nroydglovdmmgf signed by Lanie Scott at 04/17/2023 12:08 PM YED79382-0Apojvzfuw encounter XlfpDD1560-63-55Q92:08:39Telephon e encounter NoteTXT1.2.840.421139.1.13.104.2. 7.2.721627|[id number] for patient [id number] N Gonzales[address]TXTX[address] 004BBMKYXYBRJPZLHDFKNCCFV9038-92- 13T12:08:391.2.840.014990.1.72.3. 15|1.2.840.660109.1.13.104.2.7.2. [id number] Lanie Scott [facility] 2023-04-14 14:41:44 0863-01-89L43:41:44F ormatting of this note might be different from the original.Michele Stein is a 68 year old malePt calling back to check on status of refill. Please send a 30 day supply to local [facility]. [phone] (home) [id number] [place] [place] - [address] [facility] [place] [address] [facility] [facility] [address]Th[address]u: [phone] krhqfmzwdfgl-betameth asone cream 15184-2Ziqsifbdl encounter DxioJK6526-52-16L24:42:48Telephon e encounter NoteTXT1.2.840.425985.1.13.104.2. 7.2.986076|[id number] for patient [id number] R McDaniel[address] XqkmFtngcqwynJjalwvjqeACRI5670628 383TAXYJSSJXBKMCULEFWSNDF7458-17- 10T14:42:481.2.840.716036.1.72.3. 15|1.2.840.269335.1.13.104.2.7.2. [id number] Gagan Wilcox [facility] 2023 11:43:04 2587-12-07I21:43:04F ormatting of this note might be different from the original.Pt requesting 30 day refill of clotrimazole-betamethasone creamCVS/pharmacy [id number] - [place] - [facility] [address] [facility] [address] [place] Mzt: [phone] Do not send to [facility] [address]-8Elzspombz encounter LkrhWH3160-42-54S08:44:18Telephon e encounter NoteTXT1.2.840.314261.1.13.104.2. 7.2.469069|[id number] for patient [address] ZkawZsbtvczvwTeosgmhqfIXPX7544655 973MBSGDXHCWSETICWZFGJKSH3108-84- 07T11:44:181.2.840.174634.1.72.3. 15|1.2.840.711173.1.13.104.2.7.2. [id number] [facility]"
--- NOTE | 2024-03-09 08:23 | ER ---
Nurse's Notes [facility] Name: Naman De Dios Age: 68 yrs Sex: Male : 1955 Arrival Date: 03/09/2024 Time: 07:37 Bed X-Ray Private MD: Diagnosis: Fall on same level, unspecified;Contusion of shoulder;Fracture of upper end of humerus;3-part fracture of surgical neck of right humerus, initial encounter for closed fracture Presentation: 03/09 07:45 Chief complaint: Patient states: he had a fall onto his right arm 5 days ago. denies kc6 LOC or blood thinners. Coronavirus screen: At this time, the client does not indicate any symptoms associated with coronavirus-19. Ebola Screen: No symptoms or risks identified at this time. Initial Sepsis Screen: Does the patient meet any 2 criteria? No. Patient's initial sepsis screen is negative. Does the patient have a suspected source of infection? No. Patient's initial sepsis screen is negative. Risk Assessment: Do you want to hurt yourself or someone else? Patient reports no desire to harm self or others. Onset of symptoms was March 04, 2024. 07:45 Method Of Arrival: Ambulatory kc 07:45 Acuity: ABBY 3 kc6 Triage Assessment: 07:46 General: Appears in no apparent distress. comfortable, well groomed, well developed, kc6 Behavior is calm, cooperative, appropriate for age. Pain: Complains of pain in right hand and right arm Pain does not radiate. Pain currently is 7 out of 10 on a pain scale. Is continuous, Alleviated by rest, Aggravated by increased activity, Also complains of no other associated symptoms. EENT: No signs and/or symptoms were reported regarding the EENT system. Neuro: Level of Consciousness is awake, alert, obeys commands, Oriented to person, place, time, situation, Appropriate for age. Cardiovascular: Denies chest pain, Capillary refill < 3 seconds. Respiratory: Airway is patent Trachea midline Respiratory effort is even, unlabored, Respiratory pattern is regular, symmetrical, Denies shortness of breath. GI: No signs and/or symptoms were reported involving the gastrointestinal system. : No signs and/or symptoms were reported regarding the genitourinary system. Derm: Skin is intact, is healthy with good turgor, Skin is dry, Skin is normal, Skin temperature is warm Bruising that is dark purple, on anterior aspect of right upper chest, right hand and right arm. Musculoskeletal: Circulation, motion, and sensation intact. Capillary refill < 3 seconds, Range of motion: limited in right shoulder Swelling present in right hand. Historical: - Allergies: 07:46 No Known Allergies; kc6 - PMHx: 07:46 Asthma; Hypercholesterolemia; Hypertensive disorder; kc6 - PSHx: 07:46 None; kc6 - Immunization history:: Adult Immunizations up to date. - Infectious Disease History:: Denies. - Social history:: Smoking status: Patient denies any tobacco usage or history of. Screenin:48 [facility] ED Fall Risk Assessment (Adult) History of falling in the last 3 months, [facility] including since admission Yes- single mechanical fall (1 pt) Confusion or Disorientation No (0 pts) Intoxicated or Sedated No (0 pts) Impaired Gait No (0 pts) Mobility Assist Device Used No (0 pt) Altered Elimination No (0 pt) Score/Fall Risk Level 0 - 2 = Low Risk. Abuse screen: Denies threats or abuse. Denies injuries from another. Nutritional screening: No deficits noted. Tuberculosis screening: No symptoms or risk factors identified. Assessment: 07:48 Reassessment: please see triage. kc6 08:47 Reassessment: Patient appears in no apparent distress at this time. No changes from [facility] previously documented assessment. Patient and/or family updated on plan of care and expected duration. Pain level reassessed. Patient is alert, oriented x 3, equal unlabored respirations, skin warm/dry/pink. Vital Signs: 07:45 BP 168 / 89; Pulse 82; Resp 18 S; Pulse Ox 98% on R/A; Weight 68.04 kg (R); Height 5 kc6 ft. 9 in. (R); Pain 7/10; 07:45 Body Mass Index 22.15 (68.04 kg, 175.26 cm) kc6 07:45 Pain Scale: Adult [facility] ED Course: 07:38 Patient arrived in ED. mg5 07:40 Gautam Summers MD is Attending Physician. devonte 07:45 Marcela Weiss RN is Primary Nurse. kc6 07:46 Triage completed. kc6 07:46 Arm band placed on. kc6 07:48 Patient has correct armband on for positive identification. Placed in gown. Bed in low kc6 position. Call light in reach. Side rails up X 1. Client placed on continuous cardiac and pulse oximetry monitoring. NIBP monitoring applied. Pillow given. 08:22 Chest Pa And Lat (2 Views) XRAY In Process Unspecified. EDMS 08:22 Shoulder Right (2 View) XRAY In Process Unspecified. EDMS 08:22 [place] MD is Referral Physician. devonte 08:33 Clavicle/Shoulder strap applied on right clavicle/shoulder. kc6 08:47 Provided Education on: follow up with ortho. kc6 08:47 No provider procedures requiring assistance completed. Patient did not have IV access kc6 during this emergency room visit. Administered Medications: No medications were administered Medication: 08:47 VIS not applicable for this client. kc6 Outcome: 08:22 Discharge ordered by . devonte 08:47 Discharged to home ambulatory, kc6 08:47 Condition: good 08:47 Discharge instructions given to patient, Instructed on discharge instructions, follow up and referral plans. medication usage, Demonstrated understanding of instructions, follow-up care, medications, Prescriptions given X 1, 08:48 Patient left the ED. kc6 Signatures: Dispatcher [employer] Gautam Quiroz MD MD cha Campbell, Kaitlyn RN RN kc6 Megan Patel mg5
--- NOTE | 2024-03-09 08:23 | EDPHYS ---
Physician Documentation [facility] Name: Naman De Dios Age: 68 yrs Sex: Male : 1955 Arrival Date: 03/09/2024 Time: 07:37 Bed X-Ray Private MD: ED Physician Gautam Summers HPI: 03/09 07:56 This 68 yrs old Male presents to ER via Ambulatory with complaints of Fall devonte Injury, Arm Injury. 07:56 Details of fall: The patient fell from an upright position, while walking. Onset: The devonte symptoms/episode began/occurred 5 day(s) ago. Associated injuries: The patient sustained no obvious injury. Severity of symptoms: At their worst the symptoms were moderate, in the emergency department the symptoms are unchanged. The patient has not experienced similar symptoms in the past. Historical: - Allergies: 07:46 No Known Allergies; kc6 - PMHx: 07:46 Asthma; Hypercholesterolemia; Hypertensive disorder; kc6 - PSHx: 07:46 None; kc6 - Immunization history:: Adult Immunizations up to date. - Infectious Disease History:: Denies. - Social history:: Smoking status: Patient denies any tobacco usage or history of. ROS: 07:57 Constitutional: Negative for fever, chills, and weight loss, Eyes: Negative for injury, devonte pain, redness, and discharge, ENT: Negative for injury, pain, and discharge, Neck: Negative for injury, pain, and swelling, Cardiovascular: Negative for chest pain, palpitations, and edema, Respiratory: Negative for shortness of breath, cough, wheezing, and pleuritic chest pain, Abdomen/GI: Negative for abdominal pain, nausea, vomiting, diarrhea, and constipation, Back: Negative for injury and pain, : Negative for injury, bleeding, discharge, and swelling, Neuro: Negative for headache, weakness, numbness, tingling, and seizure, Psych: Negative for depression, anxiety, suicide ideation, homicidal ideation, and hallucinations, Allergy/Immunology: Negative for hives, rash, and allergies, Endocrine: Negative for neck swelling, polydipsia, polyuria, polyphagia, and marked weight changes, Hematologic/Lymphatic: Negative for swollen nodes, abnormal bleeding, and unusual bruising, 07:57 MS/extremity: Positive for decreased range of motion, pain, tenderness, of the right arm and right shoulder, Exam: 07:57 Constitutional: This is a well developed, well nourished patient who is awake, alert, devonte and in no acute distress. Head/Face: Normocephalic, atraumatic. Eyes: Pupils equal round and reactive to light, extra-ocular motions intact. Lids and lashes normal. Conjunctiva and sclera are non-icteric and not injected. Cornea within normal limits. Periorbital areas with no swelling, redness, or edema. ENT: Nares patent. No nasal discharge, no septal abnormalities noted. Tympanic membranes are normal and external auditory canals are clear. Oropharynx with no redness, swelling, or masses, exudates, or evidence of obstruction, uvula midline. Mucous membranes moist. Neck: Trachea midline, no thyromegaly or masses palpated, and no cervical lymphadenopathy. Supple, full range of motion without nuchal rigidity, or vertebral point tenderness. No Meningismus. Cardiovascular: Regular rate and rhythm with a normal S1 and S2. No gallops, murmurs, or rubs. Normal PMI, no JVD. No pulse deficits. Respiratory: Lungs have equal breath sounds bilaterally, clear to auscultation and percussion. No rales, rhonchi or wheezes noted. No increased work of breathing, no retractions or nasal flaring. Abdomen/GI: Soft, non-tender, with normal bowel sounds. No distension or tympany. No guarding or rebound. No evidence of tenderness throughout. Back: No spinal tenderness. No costovertebral tenderness. Full range of motion. Male : Normal genitalia with no discharge or lesions. Skin: Warm, dry with normal turgor. Normal color with no rashes, no lesions, and no evidence of cellulitis. MS/ Extremity: Pulses equal, no cyanosis. Neurovascular intact. Full, normal range of motion. Neuro: Awake and alert, GCS 15, oriented to person, place, time, and situation. Cranial nerves II-XII grossly intact. Motor strength 5/5 in all extremities. Sensory grossly intact. Cerebellar exam normal. Normal gait. Psych: Awake, alert, with orientation to person, place and time. Behavior, mood, and affect are within normal limits. 07:57 Chest/axilla: Inspection: deformity, of the right clavicle, anterior aspect of right upper chest, right lateral anterior chest and right lateral posterior chest 07:57 Skin: Appearance: ecchymosis, injury, contusion(s), that are deep, Vital Signs: 07:45 BP 168 / 89; Pulse 82; Resp 18 S; Pulse Ox 98% on R/A; Weight 68.04 kg (R); Height 5 kc6 ft. 9 in. (R); Pain 7/10; 07:45 Body Mass Index 22.15 (68.04 kg, 175.26 cm) [facility] 07:45 Pain Scale: Adult kc6 MDM: 07:40 Patient medically screened. devonte 07:59 Differential diagnosis: Anterior dislocation with fracture, Anterior dislocation devonte without fracture, Posterior dislocation with fracture, Posterior dislocation without fracture, humeral head fracture, Chest Wall Contusion Chest Wall Injury. Data reviewed: vital signs, nurses notes, radiologic studies, plain films. Consideration of Admission/Observation Escalation of care including admission/observation considered. I considered the following discharge prescriptions or medication management in the emergency department Medications were administered in the Emergency Department. See MAR. Independent interpretation of the following test(s) in the Emergency Department X-Ray: My interpretation is right shoulder. Test considered but Not performed: EKG: no ekg. 03/09 07:56 Order name: Chest Pa And Lat (2 Views) XRAY [facility] 03/09 07:56 Order name: Shoulder Right (2 View) XRAY [facility] 03/09 07:56 Order name: Shoulder Immobilizer; Complete Time: 08:33 devonte Administered Medications: No medications were administered Disposition Summary: 03/09/24 08:22 Discharge Ordered Notes: Location: Home devonte Problem: new devonte Symptoms: have improved devonte Condition: Stable devonte Diagnosis - Fall on same level, unspecified devonte - Contusion of shoulder devonte - Fracture of upper end of humerus devonte - 3-part fracture of surgical neck of right humerus, initial encounter for closed devonte fracture Followup: devonte - With: Private Physician - When: 2 - 3 days - Reason: Recheck today's complaints, Continuance of care, Re-evaluation by your physician Followup: devonte - With: [place] West MD - When: 2 - 3 days - Reason: Recheck today's complaints, Re-evaluation by your physician Discharge Instructions: - Discharge Summary Sheet devonte - Fall Prevention in the Home, Adult devonte - Humerus Fracture Treated With Immobilization devonte - How to Use a Shoulder Immobilizer devonte - Shoulder Pain devonte - Fall Prevention in Hospitals, Adult [facility] Forms: - Medication Reconciliation Form devonte - Antibiotic Education devonte - Prescription Opioid Use devonte - Patient Portal Instructions devonte - Leadership Thank You Letter [facility] Prescriptions: - acetaminophen-codeine 300-30 mg Oral tablet - take 2 tablet ORAL route every 6 hours as needed for pain; 24 tablet; Refills: [facility] 0, Product Selection Permitted Signatures: Dispatcher [employer] Gautam Quiroz MD MD cha Campbell, Kaitlyn RN RN kc6
--- NOTE | 2024-03-09 08:27 | RAD REPORT ---
EXAM DESCRIPTION: RAD - Chest Pa And Lat (2 Views) - 03/09/2024 8:21 am CLINICAL HISTORY: PAIN COMPARISON: CHEST PA AND LAT 2 VIEW dated 12/16/2008; CHEST PA AND LAT 2 VIEW dated 02/28/2006 TECHNIQUE: PA and lateral views of the chest were obtained. FINDINGS: The lungs are clear. Heart size is normal and central vasculature is within normal limits. No pleural effusion or pneumothorax seen. No acute bony finding noted. IMPRESSION: No acute cardiopulmonary process.
--- NOTE | 2024-03-09 08:29 | RAD REPORT ---
EXAM DESCRIPTION: Shoulder Right 2 View - 03/09/2024 8:21 am CLINICAL HISTORY: PAIN COMPARISON: Chest Pa And Lat (2 Views) dated 03/09/2024; CHEST PA AND LAT 2 VIEW dated 12/16/2008 TECHNIQUE: Internal and external rotation views of the right shoulder were obtained. FINDINGS: Comminuted and impacted proximal humerus fracture at the level of the surgical neck, with fragments involving the base of the greater tuberosity. Caudal subluxation of the major humeral head fragment relative to the glenoid. AC joint shows mild degenerative changes. No acute or suspicious fi ndings. IMPRESSION: Comminuted and impacted proximal humerus fracture as above, with glenohumeral joint subl uxation.
[2024-03-09 09:14] VITALS: BP 168/89; O2SAT 98
== END 2024-03-09 08:48 | disposition home or self-care (01) ==
LOC: ER 07:37
DX: S42.231A 3-part fracture of surgical neck of right humerus, initial encounter for closed fracture (principal); S40.011A Contusion of right shoulder, initial encounter; W18.30XA Fall on same level, unspecified, initial encounter
CPT/HCPCS: 71046; 99283